=== PATIENT | female | born 1940 | race Caucasian/White ===

== ENCOUNTER 2024-08-21 09:07 | Outpatient (REF) | payer MEDICARE, SELFPAY ==
[2024-08-21 09:18] LABS: Appearance Urine Cloudy (Clear); Bilirubin Urine Negative (Negative); Blood Urine 1+ (Negative); Color Urine Yellow (Yellow); Glucose Urine Negative (Negative); Ketones Urine Negative (Negative); Leukocyte Esterase Urine 3+ (Negative); Nitrite Urine Negative (Negative); Protein Urine 1+ (Negative); Specific Gravity Urine 1.015 (1.000-1.030); Urobilinogen Urine 0.2 (0.2-1.0)
[2024-08-21 09:36] LABS: Bacteria Urine Moderate; Squamous Epithelial Cell Urine Few (None-Few); WBC Urine 25-50 (0-5)
== END 2024-08-21 09:08 | disposition home or self-care (01) ==
LOC: NPINS 09:07
PROVIDERS: Visit Provider Nurse Practitioner Gerontology
DX: R58 Hemorrhage, not elsewhere classified (principal); R41.0 Disorientation, unspecified; R35.0 Frequency of micturition
CPT/HCPCS: 81001; 87086

== ENCOUNTER 2024-08-26 08:54 | Outpatient (REF) | payer MEDICARE, SELFPAY ==
[2024-08-26 09:05] LABS: Basophils Absolute Auto 0.03 K/uL (0.00-0.30); Basophils Percent Auto 0.5 % (0.0-3.0); Eosinophils Absolute Auto 0.16 K/uL (0.00-0.50); Eosinophils Percent Auto 2.5 % (0.0-7.0); Hematocrit 32.4 % (33.0-51.0); Hemoglobin* 9.7 gm/dL (12.0-16.0); Immature Granulocytes Abs Auto 0.01 K/uL (0.00-0.30); Immature Granulocytes Pct Auto 0.2 %; Lymphocytes Absolute Auto 1.97 K/uL (0.90-2.90); Lymphocytes Percent Auto 31.3 % (20-44); Mean Corpuscular HGB Conc 30 gm/dL (32-36); Mean Corpuscular Hemoglobin 30 pg (26-34); Mean Corpuscular Volume 101 fL (80-100); Neutrophils Absolute Auto 3.49 K/uL (1.7-7.0); Neutrophils Percent Auto 55.5 % (42.0-72.0); Platelet Count* 114 K/uL (140-440); RDW Coefficient of Variation % 14.1 % (11.5-15.5); Red Blood Count 3.22 m/uL (4.00-5.20); White Blood Count* 6.29 K/uL (4.50-11.00)
[2024-08-26 09:22] LABS: Slide Review Reflex No
[2024-08-26 09:24] LABS: Chloride* 112 mmol/L (96-114); Potassium* 4.6 mmol/L (3.6-5.1); Sodium* 141 mmol/L (135-149)
[2024-08-26 09:26] LABS: Cholesterol* 149 mg/dL (90-199)
[2024-08-26 09:27] LABS: Anion Gap 6 mEq/L (7-15); Blood Urea Nitrogen* 41 mg/dL (7-30); Carbon Dioxide* 23 mmol/L (20-32); Estimated Glomerular Filt Rate 56 ml/min; Glucose* 137 mg/dL (60-115); Triglycerides* 56 mg/dL (40-149)
[2024-08-26 09:28] LABS: Calcium* 8.9 mg/dL (8.4-10.6); HDL Cholesterol* 67 mg/dL (>=50); LDL Cholesterol Calculated 71 mg/dL (<100)
[2024-08-26 09:41] LABS: Hemoglobin A1C* 6.3 % (0-5.6)
== END 2024-08-26 08:55 | disposition home or self-care (01) ==
LOC: NPINS 08:54
PROVIDERS: Visit Provider Nurse Practitioner Gerontology
DX: E11.9 Type 2 diabetes mellitus without complications (principal); I10 Essential (primary) hypertension; E78.5 Hyperlipidemia, unspecified
CPT/HCPCS: 80048; 80061; 83036; 85025

== ENCOUNTER 2024-10-01 14:39 | Outpatient (CLI) | payer MEDICARE, BC, SELFPAY | END 2024-10-01 14:40 | disposition home or self-care (01) | LOC: NFLDREF 14:39 | PROVIDERS: Visit Provider Obstetrics & Gynecology | DX: R33.9 Retention of urine, unspecified (principal) | CPT/HCPCS: 87086 ==

== ENCOUNTER 2024-11-04 12:25 | Outpatient (REF) | payer MEDICARE, BC, SELFPAY ==
[2024-11-04 12:50] LABS: Basophils Absolute Auto 0.02 K/uL (0.00-0.30); Basophils Percent Auto 0.3 % (0.0-3.0); Eosinophils Absolute Auto 0.31 K/uL (0.00-0.50); Eosinophils Percent Auto 4.2 % (0.0-7.0); Hematocrit 30.5 % (33.0-51.0); Hemoglobin* 9.3 gm/dL (12.0-16.0); Immature Granulocytes Abs Auto 0.02 K/uL (0.00-0.30); Immature Granulocytes Pct Auto 0.3 %; Lymphocytes Percent Auto 13.6 % (20-44); Mean Corpuscular HGB Conc 31 gm/dL (32-36); Mean Corpuscular Hemoglobin 29 pg (26-34); Mean Corpuscular Volume 95 fL (80-100); Monocytes Percent Auto 9.9 % (0.0-11.0); Neutrophils Absolute Auto 5.28 K/uL (1.7-7.0); Neutrophils Percent Auto 71.7 % (42.0-72.0); Platelet Count* 167 K/uL (140-440); RDW Coefficient of Variation % 13.9 % (11.5-15.5); Red Blood Count 3.22 m/uL (4.00-5.20); White Blood Count* 7.36 K/uL (4.50-11.00)
[2024-11-04 12:51] LABS: Slide Review Reflex No
[2024-11-04 13:06] LABS: Chloride* 100 mmol/L (96-114); Potassium* 4.4 mmol/L (3.6-5.1); Sodium* 138 mmol/L (135-149)
[2024-11-04 13:09] LABS: Anion Gap 9 mEq/L (7-15); Blood Urea Nitrogen* 44 mg/dL (7-30); Calcium* 8.8 mg/dL (8.4-10.6); Carbon Dioxide* 29 mmol/L (20-32); Creatinine* 1.4 mg/dL (0.5-1.5); Estimated Glomerular Filt Rate 38 ml/min; Glucose* 245 mg/dL (60-115)
[2024-11-04 13:58] LABS: Vitamin B12* 658 pg/mL (243-894)
[2024-11-05 16:53] LABS: Folate, Serum 12.3 ng/mL (>=5.9)
== END 2024-11-04 12:26 | disposition home or self-care (01) ==
LOC: NPINS 12:25
PROVIDERS: Visit Provider Family Medicine
DX: D64.9 Anemia, unspecified (principal); R60.9 Edema, unspecified
CPT/HCPCS: 80048; 82607; 82746; 85025

== ENCOUNTER 2024-12-16 12:03 | Outpatient (REF) | payer MEDICARE, BC, SELFPAY ==
[2024-12-16 13:29] LABS: Hemoglobin A1C* 8.2 % (0-5.6)
== END 2024-12-16 12:04 | disposition home or self-care (01) ==
LOC: NPINS 12:03
PROVIDERS: Visit Provider Nurse Practitioner Gerontology
DX: E11.9 Type 2 diabetes mellitus without complications (principal)
CPT/HCPCS: 83036

== ENCOUNTER 2025-03-30 10:00 | Outpatient (REF) | payer MEDICARE, BC, SELFPAY ==
[2025-03-30 10:29] LABS: Chloride* 111 mmol/L (96-114); Potassium* 4.2 mmol/L (3.6-5.1); Sodium* 140 mmol/L (135-149)
[2025-03-30 10:32] LABS: Anion Gap 6 mEq/L (7-15); Blood Urea Nitrogen* 41 mg/dL (7-30); Calcium* 9.2 mg/dL (8.4-10.6); Carbon Dioxide* 23 mmol/L (20-32); Creatinine* 1.3 mg/dL (0.5-1.5); Estimated Glomerular Filt Rate 41 ml/min; Glucose* 117 mg/dL (60-115)
--- OUTSIDE RECORDS SUMMARY | 2025-03-31 00:15 | XMS_ITS | Patient Health Record ---
Author Organization [facility] [address] Address [address] [place] [address] Support Name Relationship Address Phone Unavailable Emergency Contact Unknown Nichol Cardenas Guarantor Unknown [phone] Reason For Referral No Information Medications Medication SIG (Take, Route, Frequency, Duration) Notes Start Date End Date Status Simvastatin 40 mg tablet 1 by mouth in t he evening 06/26/2012 Active metformin 500 mg tablet 1 by mouth in th e morning 07/08/2012 Active Omeprazole 20 mg capsule,delayed release(DR/EC) 1 by mouth twice daily 06/26/2012 Act isabella Lisinopril 5 mg tablet 1 by mouth daily 06/26/2012 Active Nitroglycerin 0.4 mg tablet, sublingual as needed 06/26/2012 Active B Complex tablet extended release 1 by mouth daily 06/26/2012 Active Fioricet 50-325-40 mg tablet take 1 tablet as needed for tension headache every 6hrs as needed for pain/ headache, stop date by 06/30/12 06/26/2012 Active Naproxen 500 mg tablet take twice a day as needed 06/26/2012 Active Ketoconazole 2 % Cream application to af fected area as needed twice a day 06/26/2012 Active Aspir-Low 81 mg tablet,delayed release (DR/EC) 1 by mouth daily 06/26/2012 Active Coenzyme Q10 200 mg capsule take 1 capsule with a meal once a day 06/26/2012 Active oxyBUTYnin Chloride 15 mg tablet extended release 24hr Take as Directed 06/26/2012 Active Problems Problem Type SNOMED Code ICD Code Onset Dates Problem Status W/U Status Risk Notes Problem Aortic valve disorder (6851494) Aortic valve disorders (424.1) 07/25/20 12 Active confirmed [id number] Problem Hyperlipidemia (10174903) Hyperlipidemia (272.4) 07/25/20 12 Active confirmed [id number]- Problem Benign essential hypertension (5140280) Hypertension-Esse ntial (Benign) (401.1) 06/26/20 12 Active confirmed [id number]- Problem Coronary artery disease (70140112) CAD (414.00) 07/25/20 12 Active confirmed [id number]- Problem Type I diabetes mellitus without complication (814963680) Diabetes Mellitus-IDD (250.01) 07/25/20 12 Active confirmed [id number]- Problem Heart murmur (348620843) Murmur-Undiagnose d (785.2) 07/25/20 12 Active confirmed [id number]- Problem Heart sounds abnormal (581480466) Abnormal Hrt Sounds,Oth (785.3) 07/25/20 12 Active confirmed [id number]- Problem Influenza immunization (18005349) Need For Prophylactic Vaccination And Inoculation Against Influenza (V04.81) 07/25/20 12 Active confirmed [id number]- Problem Screening for malignant neoplasm of breast (715555012) Breast Screening Unspecified (V76.10) 07/25/20 12 Active confirmed [id number]- Problem Screening for malignant neoplasm of colon (967054345) Special Screening For Malignant Neoplasms Of Colon (V76.51) 07/25/20 12 Active confirmed [id number]- Problem Abnormal Wt loss (783.2) 06/26/20 12 Active confirmed [id number]- Plan Of Treatment No Information Insurance Providers Payer Name Payer Address Payer Phone Subscriber Number Group Number Insured Name Patient Relationship to Insured Coverage Start Date Coverage End Date [employer] [address] [place] [address] [phone] [id number] Nichol Cardenas Self - patient is the insured
--- OUTSIDE RECORDS SUMMARY | 2025-03-31 00:16 | XMS_ITS | Patient Health Record ---
Author Organization [facility] Address [address] [place], [place] [id number] Care Team Providers Care Final Assembly Worker Name Role Phone Erin Don MD Primary Care Provider Jefe Zelaya Unavailable [phone] Reason For Referral No Information Medications Medication SIG (Take, Route, Frequency, Duration) Notes Start Date End Date Status Omeprazole Active Voltaren Active Alendronate Sodium A ctive Primidone Active Detrol Active Bland Calcium +D Ac tive metFORMIN HCl Active Nitrostat Active Lisinopril Active Aspir-81 Active FORA V30a Blood Glucose System Active Stool Softener Activ e Atorvastatin Calcium Active Spiriva HandiHaler A ctive Ventolin HFA Active Social History Tobacco Use: Social History Observation Description Date Details (start date - stop date) Current Smoker NA - NA Tobacco Use/Smoking Question Answer Notes Are you a current smoker How often do you smoke cigarettes? every day How many cigarettes a day do you smoke? 11-20 Alcohol Screen Question Answer Notes Did you have a drink containing alcohol in the p ast year? No Points 0 Tobacco use other than smoking: Question Answer Notes Are you an other tobacco user? No Section Notes: patient smokes 1 pack per da y for the past 50+ yrs. Problems Problem Type SNOMED Code ICD Code Onset Dates Problem Status W/U Status Risk Notes Problem Localized, primary osteoarthritis of the hand (229134822) Primary localized osteoarthrosis, hand (715.14) Active confirmed Problem Hand pain (89132987) Hand pain (719.44) Active confirmed Problem Contracture of palmar fascia (839546473) Contracture of palmar fascia (728.6) Active confirmed Problem Disturbance of skin sensation (497418274) Disturbance of skin sensation (782.0) Active confirmed Plan Of Treatment No Information Insurance Providers Payer Name Payer Address Payer Phone Subscriber Number Group Number Insured Name Patient Relationship to Insured Coverage Start Date Coverage End Date [employer] [address] [place] [address] [phone] [id number] Nichol Cardenas Self - patient is the insured Medical (General) History Medical History History ICD Code GERD Diabetes Osteoarthritis Urinary problem COPD Surgical History Surgery Date(Month/Year) Heart catheterization 1996 Bilateral hands surgery 1996 Appendectomy 1964 section 1971 & 1977 Tubal ligation 1977 Hospitalization History Reason Date(Month/Year) Heart catheterization 1996
--- OUTSIDE RECORDS SUMMARY | 2025-03-31 00:16 | XMS_ITS | Patient Health Record ---
Author Organization [facility] Address [address] [address] Care Team Providers Care Warehouse Worker Name Role Phone Philippe, Cale Primary Care Provider Unavailabl e Allergies No Known Allergies Reason For Referral No Information Medications Medication SIG (Take, Route, Frequency, Duration) Notes Start Date End Date Status Docusate Sodium 100 MG 1 capsule as needed Orally Once a day for 30 day(s) Not-Taking Multi For Her 50+ - as directed Orally Not-Taking Meloxicam 7.5 MG 1 tablet Orally Once a day for 30 day(s) Active Carvedilol 3.125 MG 1 tablet with food Orally Twice a day for 30 day(s) Active Aspir-81 *Reorder from [place] for eRx and Interaction Alerts* Active metFORMIN HCl 500 MG 1 tablet with a meal Orally Once a day for 30 day(s) Active Alendronate Sodium 70 MG 1 tablet 30 minutes before the first food, beverage or medicine of the day with plain water Orally for 30 day(s) Active Tylenol 8 Hour Arthritis Pain 650 MG 2 tablets as needed Orally every 8 hrs Active Spiriva HandiHaler 18 MCG 1 capsule by inhaling the contents of the capsule using the HandiHaler device Inhalation Once a day Active Atorvastatin Calcium 80 MG 1 tablet Orally Once a day for 30 day(s) Active Omeprazole 20 MG 1 capsule 30 minutes before morning meal Orally Once a day for 30 day(s) Active Plan Of Treatment No Information Insurance Providers Payer Name Payer Address Payer Phone Subscriber Number Group Number Insured Name Patient Relationship to Insured Coverage Start Date Coverage End Date [facility] [address] [place] [address] [id number] Nichol Cardenas Self - patient is the insured 4 4 Medical (General) History Medical History History ICD Code Hyperlipidemia CKD Surgical History Surgery Date(Month/Year) Appendectomy tubal ligation B/L hand sx heart cath cell biopsy Hospitalization History Reason Date(Month/Year) see above
--- OUTSIDE RECORDS SUMMARY | 2025-03-31 00:16 | XMS_ITS | Patient Health Record ---
Author Organization [facility] Address [address] [facility] [address] [place] [address] Care Team Providers Care Correctional Sergeant Name Role Phone Denae RAMÍREZ, Cale Primary Care Provider Kailyn De Guzman Unavailable [phone] Allergies No Known Allergies Reason For Referral No Information Medications Medication SIG (Take, Route, Frequency, Duration) Notes Start Date End Date Status Aspirin 81 MG 1 tab(s) orally once a day Active Ketoconazole 2 % applied topically Active Nitroglycerin 0.4 MG as directed Subling ual Once a day Active Selenium Sulfide 2.5 % as directed Active Triamcinolone Acetonide 0.1 % 1 yun applied topically 2 times a day for 14 days 04/15/2021 Not-Taking Ventolin HFA 108 (90 Base) MCG/ACT 2 puff(s) inhaled 4 times a day PRN x SOB for 30 days Active Nitrostat 0.4 MG 1 tab(s) sublinguall y every 5 minutes prn chest pain, max 3 for 90 days Active Meloxicam 7.5 MG take 1 tablet by kiersten th every day as needed orally once a day for 90 days Active Carvedilol 3.125 MG TAKE 1 TABLET BY KIERSTEN TH TWICE A DAY WITH FOOD FOR 90 DAYS for 90 Active One-A-Day Womens 50+ - as directed Orally Active Omeprazole 20 MG TAKE 1 CAPSULE BY MO UTH EVERY DAY for 90 Active Primidone 50 MG take 1 tablet by kiersten th in the morning and 2 tablets in the evening daily orally as directed for 90 days Active metFORMIN HCl 500 MG TAKE 1 TABLET BY MO UTH TWICE A DAY orally 2 times a day for 90 days Active Primidone 50 MG 1 Tablet Oral 2 90 day(s) Oral 07/02/2014 Active Tylenol PM Extra Strength 500-25 MG 1 tablet at bedtime as needed Orally Once a day Active Skyline-Ganipa-Smoothe/FS Scalp 0.01 % 1 yun applied topically 3 times a day Not-Taking Fioricet 50-300-40 MG Take 1 capsule by mouth every 4 hours as needed for headache Oral 07/02/2014 Active CoQ-10 50 MG as directed Orally Not-Taking Albuterol Sulfate HFA 108 (90 Base) MCG/ACT INHALE 1 PUFF INTO THE LUNGS EVERY 4 HOURS NEEDED Inhalation every 4 hrs for 30 days Active Docusate Sodium 100 MG 1 capsule as need ed Orally Once a day Active Alendronate Sodium 70 MG TAKE 1 TABLET B Y MOUTH ONCE A WEEK Orally once a week for 84 days Active Lisinopril 5 MG TAKE 1 TABLET BY KIERSTEN TH EVERY DAY for 90 Active Memantine HCl 10 MG 1 tablet Orally twic e a day for 90 days Active Bacitracin 500 UNIT/GM 1 application Externally Once a day Active Melatonin 5 MG 1 tab(s) orally once a day (at bedtime) prn insomnia 02/18/2019 Active Atorvastatin Calcium 80 MG TAKE 1 TABLET BY MOUTH EVERYDAY AT BEDTIME for 90 Active Immunizations Vaccine Route Administration Date Status Comme nts Covid-19- Pfizer Unknown 12/09/2020 Administered Covid-19- Pfizer Unknown 12/29/2020 Administered Influenza Non-Medicare IM Intramuscular 07/10/2019 Administered Influenza quadrivalent, preservative free IM Intramuscular 07/06/2021 Administered Influenza vaccine IM Intramuscular 05/31/2020 Administered Influenza virus vaccine, not otherwise specified IM Intramuscular 06/24/2018 Administered Patient tolerated well Influenza, high-dose, quadrivalent Unknown 07/24/2022 Administered Td -Adult Absorbed, (Tetanus & Diphteria Toxoids) Unknown 04/02/2018 Administered patient tolerated well Social History Tobacco Use: Social History Observation Description Date Details (start date - stop date) Current Smoker NA - NA Tobacco Use: Question Answer Notes Additional Findings: Tobacco User Moderate cigar ette smoker (10-19 cigs/day) Smoking Status Current smoker Problems Problem Type SNOMED Code ICD Code Onset Dates Problem Status W/U Status Risk Notes Problem Thrombocytopenia (566181264) Thrombocytopeni a, unspecified (D69.6) Active confirmed low 129 Problem Type 2 diabetes mellitus with peripheral angiopathy (828114648) Type 2 diabetes mellitus with diabetic peripheral angiopathy without gangrene (E11.51) Active confirmed Problem Hyperlipidemia (97499708) Hyperlipidemia, unspecified (E78.5) Active confirmed Problem Tobacco user (675244269) Nicotine dependence, cigarettes, uncomplicated (F17.210) Active confirmed Problem Essential tremor (866207314) Essential tremor (G25.0) Active confirmed Problem 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, with stage 1 through stage 4 chronic kidney disease, or unspecified chronic kidney disease (I13.10) Active confirmed Problem Angina (287476596) Atherosclerot ic heart disease of [place] coronary artery with unspecified angina pectoris (I25.119) Active confirmed Problem Hypertrophic cardiomyopathy (340042740) Other hypertrophic cardiomyopathy (I42.2) Active confirmed Echocardiogram June 28, 20202017 moderate concentric left ventricular hypertrophy Problem Atherosclerosis of aorta (51711372) Atherosclerosis of aorta (I70.0) Active confirmed seen on cxr 2013 Problem Atherosclerosis of [place] arteries of the extremities (866368112571523) Unspecified atherosclerosis of [place] arteries of extremities, bilateral legs (I70.203) Active confirmed Lead 05/27/21 mild bl le arteries less than 50 percent. Problem Chronic obstructive pulmonary disease (17092739) Chronic obstructive pulmonary disease, unspecified (J44.9) Active confirmed Pulmonary function test February 08, 2018 interpretation minimal obstructive lung defect with significant response to bronchodilator. 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 [address] [place] [address] 05/28/2024 Cale Philippe [facility] [address] [place] [address] 06/02/2024 Cale Philippe [facility] [address] [facility] [place] [address] 06/06/[address] [facility] [address] [facility] [address] [place] [address] 06/12/2024 Cale Philippe [facility] [address] [place] [address] 06/20/2024 Kailyn De Guzman [facility] [place] [address] [place] [address] 06/20/2024 Kailyn De Guzman Encounter for genera l adult medical examination with abnormal findings Z00.01 [facility] [place] [address] [place] [address] 07/10/2024 Cale Philippe [facility] [address] [place] [address] 07/18/2024 Cale Philippe Encounter for genera l adult medical examination with abnormal findings Z00.01 [facility] [address] [facility] [address] [place] [address] 09/26/2024 Cale Philippe Assessments Encounter Date Diagnosis (ICD Code) Assessment Notes Treatment Notes Treatment Clinical Notes Section Notes 06/20/2024 Encounter for general adult medical examination with abnormal findings (ICD-10 - Z00.01) 07/18/2024 Encounter for general adult medical examination with abnormal findings (ICD-10 - Z00.01) Plan Of Treatment Pending Test Test Name Order Date Echocardiogram, 2D, without Doppler 06/10 Echocardiogram, 2D, without Doppler 04/2021 DEXA Axial Skeleton, Hips and Spine, Bon e Density. 03/15/2018 DEXA Axial Skeleton, Hips and Spine, Bon e Density. 11/22/2016 XRay Chest, 2 views: AP and Lat 02/09/20 Urine Culture, Routine 395 01/28/2018 Lipid Panel [id number] 09/30/2020 Lipid Panel [id number] 09/24/2018 Lipid Panel 412392 07/10/2019 Lipid Panel [id number] 12/26/2017 Lipid Panel [id number] 09/27/2017 Lipid Panel [id number] 03/15/2018 Lipid Panel [id number] 05/31/2020 Ferritin 11/24/2021 Microalbumin:Creatinine Ratio, Random Ur ine 6517 09/30/2020 Microalbumin:Creatinine Ratio, Random Ur ine 6517 10/24/2021 Urinalysis,Routine (URINE DIP) 2 Hemoglobin A1c e11.9 07/10/2019 Hemoglobin A1c e11.9 09/24/2018 Hemoglobin A1c e11.9 03/15/2018 Hemoglobin A1c e11.9 09/27/2017 Hemoglobin A1c e11.9 12/26/2017 Hemoglobin A1c e11.9 06/28/2017 TSH 09/24/2018 TSH 07/10/2019 Microalbumin, Random Urine with Creatini ne 12/26/2017 Microalbumin, Random Urine with Creatini ne 03/15/2018 Vitamin B12 (Cobalamin) and Folate Panel , Serum 7065 09/24/2018 Vitamin B12 (Cobalamin) and Folate Panel , Serum 7065 11/24/2021 Vitamin B12 (Cobalamin) and Folate Panel , Serum 7065 07/10/2019 Vitamin B12 (Cobalamin) and Folate Panel , Serum 7065 05/31/2020 Urinalysis with Reflex to Microscopic (Q ) 06/28/2017 Microalbumin, Random Urine (without Crea tinine) 45326 07/10/2019 Comprehensive Metabolic Panel w/ EGFR (C MP) 48031 07/10/2019 Comprehensive Metabolic Panel w/ EGFR (C MP) 05486 09/24/2018 Comprehensive Metabolic Panel w/ EGFR (C MP) 70160 09/30/2020 Comprehensive Metabolic Panel w/ EGFR (C MP) 40459 12/24/2018 Comprehensive Metabolic Panel w/ EGFR (C MP) 79805 11/24/2021 Comprehensive Metabolic Panel w/ EGFR (C MP) 23716 06/28/2017 Comprehensive Metabolic Panel w/ EGFR (C MP) 11475 12/26/2017 Comprehensive Metabolic Panel w/ EGFR (C MP) 06180 09/27/2017 Comprehensive Metabolic Panel w/ EGFR (C MP) 50529 03/15/2018 Comprehensive Metabolic Panel w/ EGFR (C MP) 52167 06/24/2018 Comprehensive Metabolic Panel w/ EGFR (C MP) 17451 05/31/2020 Comprehensive Metabolic Panel w/ EGFR (C MP) 69819 03/04/2020 Comprehensive Metabolic Panel w/ EGFR (C MP) 60327 01/31/2017 CBC (H/H, RBC, Indices, WBC, PLT) 1759 0 03/04/2020 CBC (H/H, RBC, Indices, WBC, PLT) 1759 1 CBC (H/H, RBC, Indices, WBC, PLT) 1759 0 09/24/2018 CBC (H/H, RBC, Indices, WBC, PLT) 1759 0 09/27/2017 CBC (H/H, RBC, Indices, WBC, PLT) 1759 0 12/24/2018 Urinalysis, Complete, with Reflex to Cul ture (Q) 3020 02/12/2017 Pulmonary Function Test 09/27/2017 Pulmonary Function Test 12/26/2017 Fecal Globin by Immunochemistry (InSure) (FOBT), Medicare Screen 11/22/2016 XRay Foot, 3 views: AP, Oblique and Lat. Left 01/03/2019 CBC (INCLUDES DIFF/PLT) 03/15/2018 CBC (INCLUDES DIFF/PLT) 06/28/2017 CBC (INCLUDES DIFF/PLT) 12/26/2017 CBC (INCLUDES DIFF/PLT) 07/10/2019 Lipid Panel with Direct LDL (Q) 06/28/20 17 Hemoglobin (Hb) A1c With eAG [id number] 05/12 Mammogram Bilateral screening 11/22/2016 Mammogram Bilateral screening 03/15/2018 Hemoglobin A1c 496 02/19/2019 Hemoglobin A1c 496 10/24/2021 Hemoglobin A1c 496 09/30/2020 XRay Ankle, 2 views: AP and Lat Oblique. Left 01/03/2019 US Carotids Duplex, Bilateral 06/24/2018 US Arterial Duplex, Lower Extremities. B ilateral 02/15/2021 US Arterial Duplex, Lower Extremities. B ilateral 06/24/2018 Complete Blood Count (CBC) With Differen tial 6399 11/24/2021 Complete Blood Count (CBC) With Differen tial 6399 05/31/2020 Complete Blood Count (CBC) With Differen tial 6399 09/30/2020 TSH w/Reflex 05/31/2020 TSH w/Reflex 11/24/2021 DEXA HIP AND SPINE 07/06/2021 CHAYITO w/Reflex 11/24/2021 Future Test Test Name Order Date Lipid Panel [id number] 09/10/2021 Vitamin B12 552323 09/10/2021 CBC (INCLUDES DIFF/PLT) 09/10/2021 Hemoglobin A1c 496 09/10/2021 CMP [id number] 09/10/2021 TSH reflex to T4 09/10/2021 Vitamin D, 25-Hydroxy, Total 252151 09/2021 CMP14+eGFR 596079 03/14/2023 CBC (INCLUDES DIFF/PLT) 03/14/2023 Lipid Panel with LDL/HDL Ratio 3 Insurance Providers Payer Name Payer Address Payer Phone Subscriber Number Group Number Insured Name Patient Relationship to Insured Coverage Start Date Coverage End Date [employer] CAP [address] [place] [address] [id number] Nichol Cardenas Self - patient is the insured 9 [facility] Medicare Advantage CAP [address] [place] [address] [id number] Nichol Cardenas Self - patient is the insured [employer] [facility] [address] [place] [address] [id number] Nichol Cardenas Self - patient is the insured Medications Administered Medication Instructions Date of Administration Dosage Notes COA Form 08/05/2014 COA Form 08/19/2014 COA Form 10/15/2014 COA Form 11/25/2014 COA Form 01/20/2015 COA Form 01/22/2015 COA Form 06/30/2015 COA Form 10/06/2015 Medical (General) History Medical History History ICD Code diabetes type 2 bladder incontinence Hyperlipidemia NOS Old myocardial infarction GERD [Gastroesophageal reflux disease] Tobacco use disorder Atherosclerosis of aorta COPD, NOS Diverticular disease of colon Familial tremor CKD III Occlusion of carotid artery without ment ion of cerebral infarction Chronic cerebral ischemia Carpal tunnel syndrome Old myocardial infarction Diverticulosis of large inte chelo without perforation or abscess without bleeding Other intervertebral disc degeneration, lumbar region squamous cell carcinoma Surgical History Surgery Date(Month/Year) appendectomy 1964 c-sectionn x 2 tubaligation 1977 hand surgery both hands heart catherization 1996 squamous cell biopsy 2012 Hospitalization History Reason Date(Month/Year) see above
--- OUTSIDE RECORDS SUMMARY | 2025-03-31 00:16 | XMS_ITS | Patient Health Record ---
Author Organization [facility] Address [address] [place] [address] Care Team Providers Care Global Transportation Manager Name Role Phone Denae RAMÍREZ, Cale Primary Care Provider Brandon Powell [phone] Allergies No Known Allergies Reason For Referral No Information Medications Medication SIG (Take, Route, Frequency, Duration) Notes Start Date End Date Status metFORMIN HCl 500 MG 1 tablet with a hilda l Orally Once a day; Duration: 30 day(s) Active Aspir-81 Active Tylenol 8 Hour Arthritis Pain 650 MG 2 tablets as needed Orally every 8 hrs Active Alendronate Sodium 70 MG 1 tablet 30 min utes before the first food, beverage or medicine of the day with plain water Orally; Duration: 30 day(s) Active Multi For Her 50+ - as directed Orally Not-Taking Docusate Sodium 100 MG 1 capsule as need ed Orally Once a day; Duration: 30 day(s) Not-Taking Carvedilol 3.125 MG 1 tablet with food Orally Twice a day; Duration: 30 day(s) Active Meloxicam 7.5 MG 1 tablet Orally Once a day; Duration: 30 day(s) Active Omeprazole 20 MG 1 capsule 30 minutes before morning meal Orally Once a day; Duration: 30 day(s) Active Atorvastatin Calcium 80 MG 1 tablet Orally Once a day; Duration: 30 day(s) Active Spiriva HandiHaler 18 MCG 1 capsule by i nhaling the contents of the capsule using the HandiHaler device Inhalation Once a day Active Social History Tobacco Use: Social History Observation Description Date Details (start date - stop date) Current Smoker NA - NA Tobacco Use/Smoking Question Answer Notes Are you a current smoker How often do you smoke cigarettes? every day How many cigarettes a day do you smoke? 11-20 How soon after you wake up do you smoke your fir st cigarette? 6-30 minutes Are you interested in quitting? Not ready to david t Alcohol Screen (Audit-C) Question Answer Notes Did you have a drink containing alcohol in the p ast year? No Points 0 Interpretation Negative Plan Of Treatment No Information Insurance Providers Payer Name Payer Address Payer Phone Subscriber Number Group Number Insured Name Patient Relationship to Insured Coverage Start Date Coverage End Date [facility] [address] [place] [address] [id number] Nichol Cardenas Self - patient is the insured 2 MEDICARE [address] [place] [phone] [id number] Nichol Cardenas Self - patient is the insured Medical (General) History Medical History History ICD Code Hyperlipidemia CKD Surgical History Surgery Date(Month/Year) Appendectomy tubal ligation B/L hand sx heart cath cell biopsy Hospitalization History Reason Date(Month/Year) see above
== END 2025-03-30 10:01 | disposition home or self-care (01) ==
LOC: NPINS 10:00
PROVIDERS: Referring Provider Nurse Practitioner Gerontology; Visit Provider Nurse Practitioner Gerontology
DX: E11.51 Type 2 diabetes mellitus with diabetic peripheral angiopathy without gangrene (principal)
CPT/HCPCS: 80048; 83036

== ENCOUNTER 2025-04-23 16:10 | Outpatient (REF) | payer BC, SELFPAY ==
[2025-04-23 23:03] LABS: Hematocrit* 34.6 % (33.0-51.0); Hemoglobin* 10.6 gm/dL (12.0-16.0); Immature Granulocytes Abs Auto 0.03 K/uL (0.00-0.30); Immature Granulocytes Pct Auto 0.5 %; Lymphocytes Absolute Auto 1.58 K/uL (0.90-2.90); Mean Corpuscular HGB Conc 31 gm/dL (32-36); Mean Corpuscular Hemoglobin 29 pg (26-34); Mean Corpuscular Volume 93 fL (80-100); RDW Coefficient of Variation % 16.5 % (11.5-15.5); Red Blood Count* 3.72 m/uL (4.00-5.20); White Blood Count* 5.70 K/uL (4.50-11.00)
[2025-04-23 23:09] LABS: Slide Review Reflex No
--- OUTSIDE RECORDS SUMMARY | 2025-04-24 00:14 | XMS_ITS | Patient Health Record ---
Author Organization [facility] Address [address] [address] Care Team Providers Care Sap Business Objects Consultant Name Role Phone Denae Cale Primary Care Provider Unavailabl e Allergies No Known Allergies Reason For Referral No Information Medications Medication SIG (Take, Route, Frequency, Duration) Notes Start Date End Date Status Docusate Sodium 100 MG 1 capsule as needed Orally Once a day; Duration: 30 day(s) Not-Taking Multi For Her 50+ - as directed Orally Not-Taking Meloxicam 7.5 MG 1 tablet Orally Once a day; Duration: 30 day(s) Active Carvedilol 3.125 MG 1 tablet with food Orally Twice a day; Duration: 30 day(s) Active Aspir-81 *Reorder from ThumbAd for eRx and Interaction Alerts* Active metFORMIN HCl 500 MG 1 tablet with a meal Orally Once a day; Duration: 30 day(s) Active Alendronate Sodium 70 MG 1 tablet 30 minutes before the first food, beverage or medicine of the day with plain water Orally; Duration: 30 day(s) Active Tylenol 8 Hour Arthritis [...] Once a day; Duration: 30 day(s) Active Plan Of Treatment No Information Insurance Providers Payer Name Payer Address Payer Phone Subscriber Number Group Number Insured Name Patient Relationship to Insured Coverage Start Date Coverage End Date [facility] [address] [place] [address] [id number] Nichol Cardenas Self - patient is the insured 4 4 Medical (General) History Medical History History ICD Code Hyperlipidemia CKD Surgical History Surgery Date(Month/Year) cell biopsy heart cath B/L hand sx tubal ligation Appendectomy Hospitalization History Reason Date(Month/Year) see above
--- OUTSIDE RECORDS SUMMARY | 2025-04-24 00:14 | XMS_ITS | Patient Health Record ---
Author Organization [facility] Address [address] [place], [place] [id number] Care Team Providers Care Embroiderer Name Role Phone Erin Don MD Primary Care Provider Jefe Zelaya Unavailable [phone] Reason For Referral No Information Medications Medication SIG (Take, Route, Frequency, Duration) Notes Start Date End Date Status Omeprazole Active Voltaren Active Alendronate Sodium A ctive Primidone Active Detrol Active [place] Calcium +D Ac tive metFORMIN HCl Active [...] Problem Localized, primary osteoarthritis of the hand (106384630) Primary localized osteoarthrosis, hand (715.14) Active confirmed Problem Hand pain (56851597) Hand pain (719.44) Active confirmed Problem Contracture of palmar fascia (993565172) Contracture of palmar fascia (728.6) Active confirmed Problem Disturbance of skin sensation (254362396) Disturbance of skin sensation (782.0) Active confirmed Plan Of Treatment No Information Insurance Providers Payer Name Payer Address Payer Phone Subscriber Number Group Number Insured Name Patient Relationship to Insured Coverage Start Date Coverage End Date [facility] [address] [place] [address] [id number] Nichol Cardenas Self - patient is the insured Medical (General) History Medical History History ICD Code GERD Diabetes Osteoarthritis Urinary problem COPD Surgical History Surgery Date(Month/Year) Heart catheterization 1996 Bilateral hands surgery 1996 Appendectomy 1964 section 1971 & 1977 Tubal ligation 1977 Hospitalization History Reason Date(Month/Year) Heart catheterization 1996
--- OUTSIDE RECORDS SUMMARY | 2025-04-24 00:14 | XMS_ITS | Patient Health Record ---
Author Organization [facility] Address [address] [facility] [place] [address] Support Name Relationship Address Phone Unavailable Emergency Contact Unknown Nichol Cardenas Guarantor Unknown [phone] Reason For Referral No Information Medications Medication [...] Status Risk Notes Problem Aortic valve disorder (5395110) Aortic valve disorders (424.1) 07/25/20 12 Active confirmed [id number] Problem Hyperlipidemia (65718835) Hyperlipidemia (272.4) 07/25/20 12 Active confirmed [id number]- Problem Benign essential hypertension (8688458) Hypertension-Esse ntial (Benign) (401.1) 06/26/20 12 Active confirmed [id number]- Problem Coronary artery disease (92786630) CAD (414.00) 07/25/20 12 Active confirmed [id number]- Problem Type I diabetes mellitus without complication (812309124) Diabetes Mellitus-IDD (250.01) 07/25/20 12 Active confirmed [id number]- Problem Heart murmur (177899510) Murmur-Undiagnose d (785.2) 07/25/20 12 Active confirmed [id number]- Problem Heart sounds abnormal (468905502) Abnormal Hrt Sounds,Oth (785.3) 07/25/20 12 Active confirmed [id number]- Problem Influenza immunization (16786668) Need For Prophylactic Vaccination And Inoculation Against Influenza (V04.81) 07/25/20 12 Active confirmed [id number]- Problem Screening for malignant neoplasm of breast (055787707) Breast Screening Unspecified (V76.10) 07/25/20 12 Active confirmed [id number]- Problem Screening for malignant neoplasm of colon (265899617) Special Screening For Malignant Neoplasms Of Colon (V76.51) 07/25/20 12 Active confirmed [id number]- Problem Abnormal Wt loss (783.2) 06/26/20 12 Active confirmed [id number]- Plan Of Treatment No Information Insurance Providers Payer Name Payer Address Payer Phone Subscriber Number Group Number Insured Name Patient Relationship to Insured Coverage Start Date Coverage End Date [facility] [address] [place] [address] [id number] Nichol Cardenas Self - patient is the insured
--- OUTSIDE RECORDS SUMMARY | 2025-04-24 00:14 | XMS_ITS | Patient Health Record ---
Author Organization [facility] Address [address] [facility] [address] [place] [address] Care Team Providers Care College Teacher Name Role Phone Denae RAMÍREZ, Cale Primary Care Provider Kailyn De Guzman Unavailable [phone] Allergies No Known Allergies Reason For Referral [...] 1 yun applied topically 2 times a day; Duration: 14 days 04/15/2021 Not-Taking Ventolin HFA 108 (90 Base) MCG/ACT 2 puff(s) inhaled 4 times a day PRN x SOB; Duration: 30 days Active Nitrostat 0.4 MG 1 tab(s) sublinguall y every 5 minutes prn chest pain, max 3; Duration: 90 days Active Meloxicam 7.5 MG take 1 tablet by kiersten th every day as needed orally once a day; Duration: 90 days Active Carvedilol 3.125 MG TAKE 1 TABLET BY KIERSTEN TH TWICE A DAY WITH FOOD FOR 90 DAYS; Duration: 90 Active One-A-Day Womens 50+ - as directed Orally Active Omeprazole 20 MG TAKE 1 CAPSULE BY MO UTH EVERY DAY; Duration: 90 Active Primidone 50 MG take 1 tablet by kiersten th in the morning and 2 tablets in the evening daily orally as directed; Duration: 90 days Active metFORMIN HCl 500 MG TAKE 1 TABLET BY MO UTH TWICE A DAY orally 2 times a day; Duration: 90 days Active Primidone 50 MG 1 Tablet Oral 2 90 day(s) Oral 07/02/2014 Active Tylenol PM Extra Strength 500-25 MG 1 tablet at bedtime as needed Orally Once a day Active Schubert-Smoothe/FS Scalp 0.01 % 1 yun applied topically 3 times a day Not-Taking Fioricet 50-300-40 MG Take 1 capsule by mouth every 4 hours as needed for headache Oral 07/02/2014 Active CoQ-10 50 MG as directed Orally Not-Taking Albuterol Sulfate HFA 108 (90 Base) MCG/ACT INHALE 1 PUFF INTO THE LUNGS EVERY 4 HOURS NEEDED Inhalation every 4 hrs; Duration: 30 days Active Docusate Sodium 100 MG 1 capsule as need ed Orally Once a day Active Alendronate Sodium 70 MG TAKE 1 TABLET B Y MOUTH ONCE A WEEK Orally once a week; Duration: 84 days Active Lisinopril 5 MG TAKE 1 TABLET BY KIERSTEN TH EVERY DAY; Duration: 90 Active Memantine HCl 10 MG 1 tablet Orally twic e a day; Duration: 90 days Active Bacitracin 500 UNIT/GM 1 application Externally Once a day Active Melatonin 5 MG 1 tab(s) orally once a day (at bedtime) prn insomnia 02/18/2019 Active Atorvastatin Calcium 80 MG TAKE 1 TABLET BY MOUTH EVERYDAY AT BEDTIME; Duration: 90 Active Immunizations Vaccine Route Administration Date [...] Status W/U Status Risk Notes Problem Thrombocytopenia (428109699) Thrombocytopeni a, unspecified (D69.6) Active confirmed low 129 Problem Type 2 diabetes mellitus with peripheral angiopathy (204784521) Type 2 diabetes mellitus with diabetic peripheral angiopathy without gangrene (E11.51) Active confirmed Problem Hyperlipidemia (90279678) Hyperlipidemia, unspecified (E78.5) Active confirmed Problem Tobacco user (227144902) Nicotine dependence, cigarettes, uncomplicated (F17.210) Active confirmed Problem Essential tremor (744723425) Essential tremor (G25.0) Active confirmed Problem 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, with stage 1 through stage 4 chronic kidney disease, or unspecified chronic kidney disease (I13.10) Active confirmed Problem Angina (957175757) Atherosclerot ic heart disease of council coronary artery with unspecified angina pectoris (I25.119) Active confirmed Problem Hypertrophic cardiomyopathy (571982869) Other hypertrophic cardiomyopathy (I42.2) Active confirmed Echocardiogram June 28, 20202017 moderate concentric left ventricular hypertrophy Problem Atherosclerosis of aorta (14216297) Atherosclerosis of aorta (I70.0) Active confirmed seen on cxr 2013 Problem Bilateral atherosclerosis of arteries of lower limbs (disorder) (31613259688027907 ) Unspecified atherosclerosis of council arteries of extremities, bilateral legs (I70.203) Active confirmed Lead 05/27/21 mild bl le arteries less than 50 percent. Problem Chronic obstructive pulmonary disease (68147111) Chronic obstructive pulmonary disease, unspecified (J44.9) Active confirmed Pulmonary function test February 08, 2018 interpretation minimal obstructive lung defect with significant response to bronchodilator. 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) Active confirmed Problem Able to mobilize using mobility aids (480028494) Able to mobilize using mobility aids (Z99.89) Active confirmed Encounters Encounter Location Date Provider Diagnosis [facility] [address] [address] [place] [address] 05/28/2024 Cale Minamas [facility] [address] [place] [address] 06/02/2024 Cale Philippe [facility] [address] [facility] [address] 06/06/2024 Cale Philippe [facility] [address] [facility] [address] [place] [address] 06/12/2024 Cale Philippe [facility] [address] [place] [address] 06/20/2024 Kailyn De Guzman [facility] [place] [address] [place] [address] 06/20/2024 Kailyn De Guzman Encounter for genera l adult medical examination with abnormal findings Z00.01 [facility] [address] [place] [address] 07/10/2024 Cale Minamas [facility] [address] [place] [address] 07/18/2024 Cale Philippe Encounter for genera l adult medical examination with abnormal findings Z00.01 [facility] [address] [facility] [address] [place] [address] 09/26/2024 Cale Denae Assessments Encounter Date Diagnosis (ICD Code) Assessment [...] Hips and Spine, Bon e Density. 11/22/2016 DEXA Axial Skeleton, Hips and Spine, Bon e Density. 03/15/2018 XRay Chest, 2 views: AP and Lat 02/09/20 Urine Culture, Routine 395 01/28/2018 Lipid Panel [id number] 12/26/2017 Lipid Panel [id number] 09/27/2017 Lipid Panel [id number] 03/15/2018 Lipid Panel 243540 09/30/2020 Lipid Panel 340046 05/31/2020 Lipid Panel [id number] 07/10/2019 Lipid Panel [id number] 09/24/2018 Ferritin 11/24/2021 Microalbumin:Creatinine Ratio, Random Ur ine 6517 10/24/2021 Microalbumin:Creatinine Ratio, Random Ur ine 6517 09/30/2020 Urinalysis,Routine (URINE DIP) Hemoglobin A1c e11.9 07/10/2019 Hemoglobin A1c e11.9 03/15/2018 Hemoglobin A1c e11.9 09/27/2017 Hemoglobin A1c e11.9 06/28/2017 Hemoglobin A1c e11.9 12/26/2017 Hemoglobin A1c e11.9 09/24/2018 TSH 09/24/2018 TSH 07/10/2019 Microalbumin, Random Urine with Creatini ne 03/15/2018 Microalbumin, Random Urine with Creatini ne 12/26/2017 Vitamin B12 (Cobalamin) and Folate Panel , Serum 7065 07/10/2019 Vitamin B12 (Cobalamin) and Folate Panel , Serum 7065 11/24/2021 Vitamin B12 (Cobalamin) and Folate Panel , Serum 7065 05/31/2020 Vitamin B12 (Cobalamin) and Folate Panel , Serum 7065 09/24/2018 Urinalysis with Reflex to Microscopic (Q ) 06/28/2017 Microalbumin, Random Urine (without Crea tinine) 60110 07/10/2019 Comprehensive Metabolic Panel w/ EGFR (C MP) 43707 07/10/2019 Comprehensive Metabolic Panel w/ EGFR (C MP) 13134 03/04/2020 Comprehensive Metabolic Panel w/ EGFR (C MP) 31354 05/31/2020 Comprehensive Metabolic Panel w/ EGFR (C MP) 41090 09/30/2020 Comprehensive Metabolic Panel w/ EGFR (C MP) 22980 11/24/2021 Comprehensive Metabolic Panel w/ EGFR (C MP) 51592 12/26/2017 Comprehensive Metabolic Panel w/ EGFR (C MP) 50617 06/28/2017 Comprehensive Metabolic Panel w/ EGFR (C MP) 24521 09/27/2017 Comprehensive Metabolic Panel w/ EGFR (C MP) 90925 03/15/2018 Comprehensive Metabolic Panel w/ EGFR (C MP) 19199 12/24/2018 Comprehensive Metabolic Panel w/ EGFR (C MP) 36541 06/24/2018 Comprehensive Metabolic Panel w/ EGFR (C MP) 43889 09/24/2018 Comprehensive Metabolic Panel w/ EGFR (C MP) 55897 01/31/2017 CBC (H/H, RBC, Indices, WBC, PLT) 1759 0 09/24/2018 CBC (H/H, RBC, Indices, WBC, PLT) 1759 1 CBC (H/H, RBC, Indices, WBC, PLT) 1759 0 12/24/2018 CBC (H/H, RBC, Indices, WBC, PLT) 1759 0 09/27/2017 CBC (H/H, RBC, Indices, WBC, PLT) 1759 0 03/04/2020 Urinalysis, Complete, with Reflex to Cul ture (Q) 3020 02/12/2017 Pulmonary Function Test 09/27/2017 Pulmonary Function Test 12/26/2017 Fecal Globin by Immunochemistry (InSure) (FOBT), Medicare Screen 11/22/2016 XRay Foot, 3 views: AP, Oblique and Lat. Left 01/03/2019 CBC (INCLUDES DIFF/PLT) 07/10/2019 CBC (INCLUDES DIFF/PLT) 03/15/2018 CBC (INCLUDES DIFF/PLT) 12/26/2017 CBC (INCLUDES DIFF/PLT) 06/28/2017 Lipid Panel with Direct LDL (Q) 06/28/20 17 Hemoglobin (Hb) A1c With eAG 700123 05/12 Mammogram Bilateral screening 03/15/2018 Mammogram Bilateral screening 11/22/2016 Hemoglobin A1c 496 02/19/2019 Hemoglobin A1c 496 09/30/2020 Hemoglobin A1c 496 10/24/2021 XRay Ankle, 2 views: AP and Lat Oblique. Left 01/03/2019 US Carotids Duplex, Bilateral 06/24/2018 US Arterial Duplex, Lower Extremities. B ilateral 06/24/2018 US Arterial Duplex, Lower Extremities. B ilateral 02/15/2021 Complete Blood Count (CBC) With Differen tial 6399 09/30/2020 Complete Blood Count (CBC) With Differen tial 6399 05/31/2020 Complete Blood Count (CBC) With Differen tial 6399 11/24/2021 TSH w/Reflex 11/24/2021 TSH w/Reflex 05/31/2020 DEXA HIP AND SPINE 07/06/2021 CHAYITO w/Reflex 11/24/2021 Future Test Test Name Order Date Lipid Panel [id number] 09/10/2021 Vitamin B12 [id number] 09/10/2021 CBC (INCLUDES DIFF/PLT) 09/10/2021 Hemoglobin A1c 496 09/10/2021 CMP [id number] 09/10/2021 TSH reflex to T4 09/10/2021 Vitamin D, 25-Hydroxy, Total 188874 09/2021 CMP14+eGFR 198667 03/14/2023 CBC (INCLUDES DIFF/PLT) 03/14/2023 Lipid Panel with LDL/HDL Ratio 3 Insurance Providers Payer Name Payer Address Payer Phone Subscriber Number Group Number Insured Name Patient Relationship to Insured Coverage Start Date Coverage End Date [employer] [address] [place] [address] [id number] Nichol Cardenas Self - patient is the insured 9 [facility] Medicare Advantage CAP [address] [place] [id number] Nichol Cardenas Self - patient is the insured [employer] [facility] [employer] [address] [place] [id number] Nichol Cardenas Self - patient is the [...] squamous cell carcinoma Surgical History Surgery Date(Month/Year) squamous cell biopsy 2012 heart catherization 1996 hand surgery both hands c-sectionn x 2 appendectomy 1963 tubaligation 1977 Hospitalization History Reason Date(Month/Year) see above
--- OUTSIDE RECORDS SUMMARY | 2025-04-24 00:14 | XMS_ITS | Patient Health Record ---
Author Organization [facility] Address [address] [place] [address] Care Team Providers Care Cake Wrapper Name Role Phone Denae RAMÍREZ, Cale Primary Care Provider Brandon Powell [phone] Allergies No Known Allergies Reason For Referral [...] Insured Coverage Start Date Coverage End Date [facility] [address] [place] [address] [id number] Nichol Cradenas Self - patient is the insured 2 MEDICARE [address] [place] [phone] [id number] Nichol Cardenas Self - patient is the insured Medical (General) History Medical History History ICD Code Hyperlipidemia CKD Surgical History Surgery Date(Month/Year) Appendectomy tubal ligation B/L hand sx heart cath cell biopsy Hospitalization History Reason Date(Month/Year) see above
== END 2025-04-23 16:11 | disposition home or self-care (01) ==
LOC: NPINS 16:10
PROVIDERS: PCP Family Medicine; Visit Provider Nurse Practitioner Gerontology
DX: D64.9 Anemia, unspecified (principal)
CPT/HCPCS: 85025

== ENCOUNTER 2025-05-12 13:30 | Outpatient (REF) | payer BC, SELFPAY ==
--- OUTSIDE RECORDS SUMMARY | 2025-04-27 09:15 | XMS_ITS | Encounter Summary ---
Author Organization [facility] Address [address] [place] [address] Care Team Providers Care Senior Computer Specialist Name Role Phone Unavailable Primary Care Provider Unavailabl e Reason for Referral * Specialty Diagnoses / Procedures Referred By Gutierrez story Referred To Contact Diagnoses Squamous Cell Carcinoma Of Skin Of Scalp And Neck Francesco Braswell M.D., M.S. [address] [place] [phone] Phone: tel: fax: [facility] Referral ID Status Reason Start Date Expiration Date Visits Re quested Visits Authorized Scheduling Instructions Pt an hour away hoping she can chat with someone today about Cemiplimab (potentially neoadjuvant prior to surgery). 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 Thank you :) Reason for Visit * Outpatient (Routine) - Closed Specialty Diagnoses / Procedures Referred By Gutierrez t Referred To Contact Dermatology Joseph Rivera M.D. [address] [place] [phone] Phone: tel: fax: [facility] Referral ID Status Reason Start Date Expiration Date Visits Re quested Visits Authorized [id number] Closed 03/19/2025 09/18/2026 1 1 Encounter Details Date Type Department Care Team (Latest Contact Info) Description 04/27/2025 9:15 AM CDT Comprehensive Visit Department of Dermatology in [place], [place] [address] [place] [phone] Francesco Braswell M.D., M.S. [address] [place] [phone] Squamous Cell Carcinoma Of Skin Of Scalp And Neck (Primary Dx) Discharge Disposition: Home or Self Care Social History Tobacco Use Types Packs/Day Years Used Date Smoking Tobacco: Never Assessed Comments Unknown Sex and Gender Information Value Date Recorded Sex Assigned at Not on file Legal Sex Female 8:35 AM CDT Gender Identity Not on file Sexual Orientation Not on file documented as of this encounter Consult Notes * Francesco Braswell M.D., M.S. - 04/27/2025 9:15 AM CDT REFERRING PROVIDER Joseph Rivera M.D. 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 Skin: Examination performed of the scalp per patient's request. Examination reveals Garcia type II skin. There is an exophytic tumor with a necrotic central area noted on the left central frontal scalp measuring approximately 7-8 cm in diameter. No other lesions of concern identified. 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 I have also discussed the possibility of neoadjuvant immunotherapy prior to surgery as a way of shrinking the tumor which may decrease morbidity at the time of removal. Finally I have discussed the possibility of radiation therapy as a primary treatment approach with out surgery as an option. After discussing these options Mrs. Cardenas and her daughters are most inclined to start with immunotherapy, see how that goes, and potentially consider surgery afterwards if they immunotherapy does not seem to be getting rid of the tumor in its entirety. I have placed an order for Mrs. Cardenas to discuss the possibility of immunotherapy as a potential neoadjuvant therapy with my colleagues in Medical Oncology, with the option of Mohs surgery combined with head neck surgery down the road. She was able to get an appointment scheduled for tomorrow. #2 Fair complected individual #3 Dermatoheliosis #4 Freeze risk for future skin cancer Mrs. Cardenas should sun protect daily and monitor her skin regularly. Full skin examinations in the Dermatology Department would be recommended on a regular basis. All questions addressed and answered today, and Mrs. Cardenas is welcome to call should any questions or concerns arise in the future. PATIENT EDUCATION Ready to learn. No apparent learning barriers were identified. Learning preferences include listening. Explained diagnosis and treatment plan; patient/guardian of patient expressed understanding of the content. documented in this encounter Plan of Treatment Scheduled Referrals Name Type Priority Associated Diagnoses Orde r Schedule Oncology - Head Neck education visit (clinic) Outpatient Referral Routine Squamous Cell Carcinoma Of Skin Of Scalp And Neck Expected: 04/27/2025, Expires: 07/28/2026 documented as of this encounter Visit Diagnoses Diagnosis Squamous Cell Carcinoma Of Skin Of Scalp And Neck- Primary documented in this encounter
[2025-05-12 15:09] LABS: Chloride* 108 mmol/L (96-114); Potassium* 4.2 mmol/L (3.6-5.1); Sodium* 138 mmol/L (135-149)
[2025-05-12 15:12] LABS: Blood Urea Nitrogen* 46 mg/dL (7-30); Creatinine* 1.5 mg/dL (0.5-1.5); Estimated Glomerular Filt Rate 35 ml/min
[2025-05-12 15:13] LABS: Anion Gap 8 mEq/L (7-15); Calcium* 9.1 mg/dL (8.4-10.6); Carbon Dioxide* 22 mmol/L (20-32); Glucose* 125 mg/dL (60-115)
--- OUTSIDE RECORDS SUMMARY | 2025-05-13 00:17 | XMS_ITS | Encounter Summary ---
Author Organization [facility] Address [address] [place] [address] Care Team Providers Care Service Order Expediter Name Role Phone Unavailable Primary Care Provider Unavailabl e Reason for Referral * Outpatient (Routine) - Closed Specialty Diagnoses / Procedures Referred By Gutierrez story Referred To Contact Dermatology Joseph Rivera M.D. [address] [place] [phone] Phone: tel: fax: [facility] Referral ID Status Reason Start Date Expiration Date Visits Re quested Visits Authorized [id number] Closed 03/19/2025 09/18/2026 1 1 Reason for Visit * Reason Onset Date Comments Referral Triage 03/06/2025 Encounter Details Date Type Department Care Team (Late st Contact Info) Description 03/06/2025 Referral Triage Department of Dermatology in [place], [place] [address] [place] [phone] Prescheduling, Provider Referral Triage Social History Tobacco Use Types Packs/Day Years Used Date Smoking Tobacco: Never Assessed Comments Unknown Sex and Gender Information Value Date Recorded Sex Assigned at Not on file Legal Sex Female 8:35 AM CDT Gender Identity Not on file Sexual Orientation Not on file documented as of this encounter Plan of Treatment Scheduled Referrals Name Type Priority Associated Diagnoses Order Schedule Dermatology office visit (clinic) Outpatient Referral Routine Expected: 03/19/2025, Expires: 06/19/2026 documented as of this encounter Visit Diagnoses Not on filedocumented in this encounter
--- OUTSIDE RECORDS SUMMARY | 2025-05-13 00:17 | XMS_ITS | Encounter Summary ---
Author Organization [facility] Address [address] [place] [address] Care Team Providers Care Manager Rail Name Role Phone Unavailable Primary Care Provider Unavailabl e Reason for Referral * MRI/CAT/PET Scan (Routine) - Authorized Specialty Diagnoses / Procedures Referred By Gutierrez story Referred To Contact Diagnoses Squamous Cell Carcinoma Of Skin Of Scalp And Neck Procedures PET CT Skull to Thigh FDG Francesco Braswell M.D., M.S. [address] [place] [phone] Phone: tel: fax: [facility] Referral ID Status Reason Start Date Expiration Date V isits Requested Visits Authorized [id number] Authorized 04/30/2025 07/31/2026 1 1 Encounter Details Date Type Department Care Team (Late st Contact Info) Description 04/30/2025 Orders Only Department of Dermatology in [place], [place] [address] [place] [phone] Francesco Braswell M.D., M.S. [address] [place] [phone] Squamous Cell Carcinoma Of Skin Of Scalp And Neck (Primary Dx) Social History Tobacco Use Types Packs/Day Years Used Date Smoking Tobacco: Never Assessed Comments Unknown Sex and Gender Information Value Date Recorded Sex Assigned at Not on file Legal Sex Female 8:35 AM CDT Gender Identity Not on file Sexual Orientation Not on file documented as of this encounter Plan of Treatment Scheduled Orders Name Type Priority Associated Diagnoses Order Schedule CBC with Differential, Blood Lab Routine Squamous Cell Carcinoma Of Skin Of Scalp And Neck Expected: 04/30/2025, Expires: 07/31/2026 Comprehensive Metabolic Panel Lab Routine Squamous Cell Carcinoma Of Skin Of Scalp And Neck Expected: 04/30/2025 (Approximate), Expires: 07/31/2026 Glucose, Fasting Lab Routine Squamous Cell Carcinoma Of Skin Of Scalp And Neck Expected: 04/30/2025 (Approximate), Expires: 07/31/2026 Thyroid Function [place] Lab Routine Squamous Cell Carcinoma Of Skin Of Scalp And Neck Expected: 04/30/2025, Expires: 07/31/[address] Skull to Thigh FDG Imaging RAD - Routine (most inpatients and all outpatients) Squamous Cell Carcinoma Of Skin Of Scalp And Neck Expected: 04/30/2025, Expires: 07/31/2026 documented as of this encounter Visit Diagnoses Diagnosis Squamous Cell Carcinoma Of Skin Of Scalp And Neck- Primary documented in this encounter
--- OUTSIDE RECORDS SUMMARY | 2025-05-13 00:17 | XMS_ITS | Encounter Summary ---
Author Organization [facility] Address [address] [place] [address] Care Team Providers Care Business Process Coordinator Name Role Phone Unavailable Primary Care Provider Unavailabl e Reason for Referral * Outpatient (Routine) - Authorized Specialty Diagnoses / Procedures Referred By Gutierrez story Referred To Contact Medical Oncology / Oncology Diagnoses Squamous Cell Carcinoma Of Skin Of Scalp And Neck Francesco Braswell M.D., M.S. [address] [place] [phone] Phone: tel: fax: [facility] Region Referral ID Status Reason Start Date Expiration Date Visits Requested Visits Authorized [id number] Authorized Specialty Services Required 05/06/2025 11/05/2026 1 1 Scheduling Instructions [place] or [place] if possible. Thank you! * MRI/CAT/PET Scan (Routine) - Authorized Specialty Diagnoses / Procedures Referred By Gutierrez story Referred To Contact Diagnoses Squamous Cell Carcinoma Of Skin Of Scalp And Neck Procedures PET CT Whole Body FDG Francesco Braswell M.D., M.S. [address] [place] [phone] Phone: tel: fax: [facility] Region Referral ID Status Reason Start Date Expiration Date V isits Requested Visits Authorized [id number] Authorized 05/06/2025 08/06/2026 1 1 Encounter Details Date Type Department Care Team ([facility] st Contact Info) Description 05/06/2025 Orders Only Department of Dermatology in [place], [place] 200 [place] [phone] Francesco Braswell M.D., M.S. [address] [place] [phone] Squamous Cell Carcinoma Of Skin Of Scalp [...] Scheduled Orders Name Type Priority Associated Diagnoses Orde r Schedule PET CT Whole Body FDG Imaging RAD - Routine (most inpatients and all outpatients) Squamous Cell Carcinoma Of Skin Of Scalp And Neck Expected: 05/06/2025, Expires: 08/06/2026 Scheduled Referrals Name Type Priority Associated Diagnoses Orde r Schedule Oncology - Medical, general consult (clinic) Outpatient Referral Routine Squamous Cell Carcinoma Of Skin Of Scalp And Neck Expected: 05/06/2025, Expires: 08/06/2026 documented as of this encounter Visit Diagnoses Diagnosis Squamous Cell Carcinoma Of Skin Of Scalp And Neck- Primary documented in this encounter
--- OUTSIDE RECORDS SUMMARY | 2025-05-13 00:17 | XMS_ITS | Clinical Summary ---
Author Organization [facility] Address [address] [place] [address] Care Team Providers Care Nurse Auditor Name Role Phone Unavailable Primary Care Provider Unavailabl e Source Comments Patient records contain information from all sites at [facility]. For routine questions regarding patient records, call [phone] during business hours, M-F 8:00 AM - 5:00 PM Central Time. Record requests for emergency care only can be directed to [phone] at any time.[facility] Encounters Date Type Department Care Team Description 05/06/2025 Orders Only Department of Dermatology in [place], [place] [address] [place] [phone] Francesco Braswell M.D., M.S. Squamous Cell Carcinoma Of Skin Of Scalp And Neck (Primary Dx) 04/30/2025 Orders Only Department of Dermatology in [place], [place] [address] [place] [phone] Francesco Braswell M.D., M.S. Squamous Cell Carcinoma Of Skin Of Scalp And Neck (Primary Dx) 04/27/2025 9:15 AM CDT Comprehensive Visit Department of Dermatology in [place], [place] [address] [place] [phone] Francesco Braswell M.D., M.S. Squamous Cell Carcinoma Of Skin Of Scalp And Neck (Primary Dx) Discharge Disposition: Home or Self Care 04/27/2025 Clinical Communication Department of Dermatology in [place], [place] [address] [place] [phone] Francesco Braswell M.D., M.S. 03/06/2025 Referral Triage Department of Dermatology in [place], [place] [address] [place] [phone] Prescheduling, Provider Referral Triage 03/05/2025 Ancillary Procedure Department of Dermatology from Last 3 Months Social History Tobacco Use Types Packs/Day Years Used Date Smoking Tobacco: Never Assessed Comments Unknown Sex and Gender Information Value Date Recorded Sex Assigned at Not on file Legal Sex Female 8:35 AM CDT Gender Identity Not on file Sexual Orientation Not on file Plan of Treatment Health Maintenance Due Date Last Done Comments DTaP,Tdap,and Td Vaccines (1 - Tdap) 1961 Pneumococcal vaccine (50+ ye ars) (1 of 1 - PCV) 1992 Zoster Vaccines (1 of 2) 1992 RSV vaccine - (32-3 6 weeks) or 60+ years (1 - 1-dose 75+ series) 2017 Depression Screening (Annual PHQ-2) 09/10/2024 Fall Risk Screen (Annual) 09/10/2024 COVID-19 Vaccine (1 - 2023-2 5 season) 2025 Influenza Vaccine (#1) 2025 09/12/2024 IPV Vaccines Aged Out No longer eligi ble based on patient's age to complete this topic Procedures Procedure Name Priority Date/Time Associated Diagnosis Comments DERMATOLOGY IMAGE EXAM Routine 03/05/2025 12:00 AM CDT from Last 3 Months Results * Scalp 502-Dermatology Image Exam (03/05/2025 12:00 AM CDT) Narrative IIMS - 03/05/2025 3:31 PM CDT This order has been created and auto-finalized to support the import of images acquired without order. The clinical documentation to support these images can be found on the encounter that produced images. us Provider Not In System IMG NON RAD IMAGING PROCE VINCE Final Result [facility]IMS NA from Last 3 Months Insurance MEDICARE
--- OUTSIDE RECORDS SUMMARY | 2025-05-13 00:17 | XMS_ITS | Encounter Summary ---
Author Organization [facility] Address [address] [place] [address] Care Team Providers Care Recoater Name Role Phone Unavailable Primary Care Provider Unavailabl e Reason for Referral * Outpatient (Routine) - Authorized Specialty Diagnoses / Procedures Referred By Gutierrez story Referred To Contact Medical Oncology / Oncology Diagnoses Squamous Cell Carcinoma Of Skin Of Scalp And Neck Francesco Braswell M.D., M.S. [address] [place] [phone] Phone: tel: fax: [facility] Referral ID Status Reason Start Date Expiration Date V isits Requested Visits Authorized [id number] Authorized 04/30/2025 10/30/2026 1 1 Encounter Details Date Type Department Care Team (Late st Contact Info) Description 04/27/2025 Clinical Communication Department of Dermatology in [place], [place] [address] [place] [phone] Francesco Braswell M.D., M.S. [address] [place] [phone] Social History Tobacco Use Types Packs/Day Years [...] Diagnoses Orde r Schedule Oncology - Medical, skin cancer (melanoma and non-melanoma skin cancer, excluding cutaneous lymphoma) consult (clinic) Outpatient Referral Routine Squamous Cell Carcinoma Of Skin Of Scalp And Neck Expected: 04/30/2025, Expires: 07/31/2026 documented as of this encounter Visit Diagnoses Diagnosis Squamous Cell Carcinoma Of Skin Of Scalp And Neck- Primary documented in this encounter
== END 2025-05-12 13:31 | disposition home or self-care (01) ==
LOC: NPINS 13:30
PROVIDERS: PCP Family Medicine; Visit Provider Nurse Practitioner Gerontology
DX: R60.9 Edema, unspecified (principal)
CPT/HCPCS: 80048

== ENCOUNTER 2025-05-21 13:07 | Outpatient (CLI) | payer BC, SELFPAY ==
--- NOTE | 2025-05-21 17:00 | CRLHL7_ITS ---
For Patients: As a result of the Century Cures Act, medical imaging exams and procedure reports are released immediately into your electronic medical record. You may view this report before your referring provider. If you have questions, please contact your health care provider. CLINICAL HISTORY: Squamous cell carcinoma of the scalp. TECHNIQUE: Following IV injection of 50-vygqrh-8-deoxyglucose (FDG) and a standard uptake period of approximately 60 minutes, a non-contrast CT scan followed by a PET scan were acquired along the length of the body from the top of the head to the feet. The non-contrast CT was used for anatomic localization and photon attenuation correction of the PET scan. Blood Glucose Level (mg/dL): 99 FDG Dose (mCi): 12.7 FINDINGS: Head/Neck: 4.3 x 1.4 cm left frontal scalp mass, SUV max 20.3. No other abnormal activity identified in the head and neck. Chest: No mediastinal or hilar adenopathy. No axillary adenopathy. Atherosclerotic vascular calcifications. The lungs show no focal pulmonary opacities. No pneumothorax. Abdomen/Pelvis: No focal abnormalities identified in the visualized portions of the liver, spleen, pancreas, and adrenal glands. A few small bilateral renal cysts. The kidneys are otherwise unremarkable. No hydronephrosis. Colonic diverticulosis. The remainder of the GI tract is incompletely distended but shows no gross abnormalities. Probable pessary in the vagina. No retroperitoneal, pelvic sidewall, or mesenteric adenopathy. Atherosclerotic vascular calcifications. Gallstone in the gallbladder. Bones: No abnormal skeletal activity identified. IMPRESSION: 1. Left frontal scalp mass shows increased activity representing the patient`s squamous cell carcinoma. 2. No metastatic disease identified. Dictated by Bi Albright MD @ 05/24/2025 4:47:00 PM (Electronically Signed)
== END 2025-05-21 13:08 | disposition home or self-care (01) ==
PROVIDERS: PCP Family Medicine; Visit Provider Dermatology
DX: C44.42 Squamous cell carcinoma of skin of scalp and neck (principal)
CPT/HCPCS: 78816; A9552

== ENCOUNTER 2025-06-17 14:43 | Outpatient (REF) | payer BC, SELFPAY ==
[2025-06-17 15:19] LABS: Albumin* 3.9 g/dL (3.3-5.0); Chloride* 104 mmol/L (96-114); Potassium* 4.3 mmol/L (3.6-5.1); Sodium* 140 mmol/L (135-149)
[2025-06-17 15:22] LABS: Alanine Aminotransferase* 53 U/L (4-35); Alkaline Phosphatase* 108 U/L (40-150); Anion Gap 12 mEq/L (7-15); Aspartate Amino Transferase* 51 U/L (12-35); Bilirubin Direct* 0.3 mg/dL (0.0-0.5); Bilirubin Total* 0.6 mg/dL (0.1-1.5); Blood Urea Nitrogen* 46 mg/dL (7-30); Carbon Dioxide* 24 mmol/L (20-32); Creatinine* 2.0 mg/dL (0.5-1.5); Estimated Glomerular Filt Rate 24 ml/min; Total Protein* 7.1 g/dL (6.0-8.3)
[2025-06-17 15:23] LABS: Calcium* 9.6 mg/dL (8.4-10.6); Glucose* 151 mg/dL (60-115)
[2025-06-17 15:43] LABS: NT Pro B Type NatriureticPept* 1520 pg/mL (See Note)
== END 2025-06-17 14:44 | disposition home or self-care (01) ==
LOC: NPINS 14:43
PROVIDERS: PCP Family Medicine; Visit Provider Family Medicine
DX: N17.9 Acute kidney failure, unspecified (principal); C44.92 Squamous cell carcinoma of skin, unspecified
CPT/HCPCS: 80048; 80076; 83880

== ENCOUNTER 2025-06-22 13:45 | Outpatient (REF) | payer BC, SELFPAY ==
[2025-06-22 14:07] LABS: Hematocrit* 33.7 % (33.0-51.0); Hemoglobin* 10.5 gm/dL (12.0-16.0); Immature Granulocytes Abs Auto 0.01 K/uL (0.00-0.30); Immature Granulocytes Pct Auto 0.2 %; Lymphocytes Absolute Auto 1.54 K/uL (0.90-2.90); Mean Corpuscular HGB Conc 31 gm/dL (32-36); Mean Corpuscular Hemoglobin 29 pg (26-34); Mean Corpuscular Volume 92 fL (80-100); RDW Coefficient of Variation % 16.0 % (11.5-15.5); Red Blood Count* 3.67 m/uL (4.00-5.20); White Blood Count* 6.58 K/uL (4.50-11.00)
[2025-06-22 14:23] LABS: Slide Review Reflex No
[2025-06-22 15:16] LABS: Albumin* 3.7 g/dL (3.3-5.0); Chloride* 105 mmol/L (96-114)
[2025-06-22 15:17] LABS: Potassium* 4.0 mmol/L (3.6-5.1); Sodium* 135 mmol/L (135-149)
[2025-06-22 15:19] LABS: Alanine Aminotransferase* 52 U/L (4-35); Alkaline Phosphatase* 118 U/L (40-150); Anion Gap 10 mEq/L (7-15); Aspartate Amino Transferase* 62 U/L (12-35); Bilirubin Total* 0.5 mg/dL (0.1-1.5); Blood Urea Nitrogen* 39 mg/dL (7-30); Carbon Dioxide* 20 mmol/L (20-32); Creatinine* 1.7 mg/dL (0.5-1.5); Estimated Glomerular Filt Rate 30 ml/min; Total Protein* 6.6 g/dL (6.0-8.3)
[2025-06-22 15:20] LABS: Calcium* 9.0 mg/dL (8.4-10.6); Glucose* 187 mg/dL (60-115)
--- OUTSIDE RECORDS SUMMARY | 2025-06-23 00:16 | XMS_ITS | Clinical Summary ---
Author Organization [facility] Address [address] [place] [address] Care Team Providers Care Forming Machine Upkeep Mechanic Helper Name Role Phone Unavailable Primary Care Provider Unavailabl e Source Comments Patient records contain information from all sites at [facility]. For routine questions regarding patient records, call [phone] during business hours, M-F 8:00 AM - 5:00 PM Central Time. Record requests for emergency care only can be directed to [phone] at any time.[facility] Encounters Date Type Department Care Team Description 05/06/2025 Orders Only Department of Dermatology in [place], [place] [address] [place] [phone] Francesco Braswell M.D., M.S. Squamous Cell Carcinoma Of Skin Of Scalp And Neck (Primary Dx) 04/30/2025 Orders Only Department of Dermatology in [place], [place] [address] [place] [phone] Francesco Braswell M.D., M.S. Squamous Cell Carcinoma Of Skin Of Scalp And Neck (Primary Dx) 04/27/2025 9:15 AM CDT Comprehensive Visit Department of Dermatology in [place], [place] [address] [place] [phone] Francesco Braswell M.D., M.S. Squamous Cell Carcinoma Of Skin Of Scalp And Neck (Primary Dx) Discharge Disposition: Home or Self Care 04/27/2025 Clinical Communication Department of Dermatology in [place], [place] [address] [place] [phone] Francesco Braswell M.D., M.S. from Last 3 Months Social History Tobacco [...] Pneumococcal vaccine (50+ ye ars) (1 of 2 - PCV) 1961 Zoster Vaccines (1 of 2) 1992 RSV vaccine - (32-3 6 weeks) or 50+ years (1 - 1-dose 75+ series) 2017 Depression Screening (Annual PHQ-2) 09/10/2024 Fall Risk Screen (Annual) 09/10/2024 COVID-19 Vaccine ( - 2024-2 6 season) 2025 Influenza Vaccine (#1) 2025 09/12/2024 IPV Vaccines Aged Out No longer eligi ble based on patient's age to complete this topic Procedures Procedure Name Priority Date/Time Associated Diagnosis Comments OUTSIDE NM PET Routine 05/21/2025 2:45 PM CDT from Last 3 Months Results * PET WHOLE BODY-Outside NM Pet (05/21/2025 2:45 PM CDT) 05/21/2025 2:43 PM CDT Narrative IIMS - 05/21/2025 5:38 PM CDT This order has been created and auto-finalized to support the import of outside images. If available, original interpretation can be found on the Media Tab in Chart Review, in Document Viewer, as an image in InfinityView or as an Addendum. If a re-interpretation or overread is required please follow defined workflow. us Provider Not In System IMG NM PROCEDURES Final R esult IIMS NA from Last 3 Months Insurance MEDICARE
== END 2025-06-22 13:46 | disposition home or self-care (01) ==
LOC: NPINS 13:45
PROVIDERS: PCP Family Medicine; Visit Provider Family Medicine
DX: C44.92 Squamous cell carcinoma of skin, unspecified (principal)
CPT/HCPCS: 80053; 84443; 85025

== ENCOUNTER 2025-07-14 13:48 | Outpatient (REF) | payer BC, SELFPAY ==
[2025-07-14 14:53] LABS: Hematocrit* 34.9 % (33.0-51.0); Hemoglobin* 10.6 gm/dL (12.0-16.0); Immature Granulocytes Abs Auto 0.03 K/uL (0.00-0.30); Immature Granulocytes Pct Auto 0.5 %; Lymphocytes Absolute Auto 1.47 K/uL (0.90-2.90); Mean Corpuscular HGB Conc 30 gm/dL (32-36); Mean Corpuscular Hemoglobin 28 pg (26-34); Mean Corpuscular Volume 93 fL (80-100); RDW Coefficient of Variation % 15.9 % (11.5-15.5); Red Blood Count* 3.77 m/uL (4.00-5.20); White Blood Count* 6.47 K/uL (4.50-11.00)
[2025-07-14 14:56] LABS: Slide Review Reflex No
[2025-07-14 15:15] LABS: Albumin* 3.5 g/dL (3.3-5.0); Chloride* 110 mmol/L (96-114); Sodium* 139 mmol/L (135-149)
[2025-07-14 15:16] LABS: Potassium* 4.6 mmol/L (3.6-5.1)
[2025-07-14 15:18] LABS: Alanine Aminotransferase* 48 U/L (4-35); Alkaline Phosphatase* 104 U/L (40-150); Anion Gap 8 mEq/L (7-15); Aspartate Amino Transferase* 44 U/L (12-35); Bilirubin Total* 0.7 mg/dL (0.1-1.5); Blood Urea Nitrogen* 40 mg/dL (7-30); Carbon Dioxide* 21 mmol/L (20-32); Creatinine* 1.7 mg/dL (0.5-1.5); Estimated Glomerular Filt Rate 30 ml/min; Total Protein* 6.7 g/dL (6.0-8.3)
[2025-07-14 15:19] LABS: Calcium* 9.0 mg/dL (8.4-10.6); Glucose* 124 mg/dL (60-115)
--- OUTSIDE RECORDS SUMMARY | 2025-07-15 00:28 | XMS_ITS | Clinical Summary ---
Author Organization [facility] Address [address] [place] [address] Care Team Providers Care Lead Generator Name Role Phone Unavailable Primary Care Provider Unavailabl e Source Comments Patient records contain information from all sites at [facility]. For routine questions regarding patient records, call [phone] during business hours, M-F 8:00 AM - 5:00 PM Central Time. Record requests for emergency care only can be directed to [phone] at any time.[facility] Encounters Date Type Department Care Team Description 05/06/2025 Orders Only Department of Dermatology in [place], [place] [address] [place] [phone] Francesco Braswell M.D., M.S. Squamous Cell Carcinoma Of Skin Of Scalp And Neck (Primary Dx) 04/30/2025 Orders Only Department of Dermatology in [place], [place] [address] [place] [phone] Francesco Braswell M.D., M.S. Squamous Cell Carcinoma Of Skin Of Scalp And Neck (Primary Dx) 04/27/2025 9:15 AM CDT Comprehensive Visit Department of Dermatology in [place], [place] [address] [place] [phone] Francesco Braswell M.D., M.S. Squamous Cell Carcinoma Of Skin Of Scalp And Neck (Primary Dx) Discharge Disposition: Home or Self Care 04/27/2025 Clinical Communication Department of Dermatology in [place], [place] [address] [place] [phone] Francesco Braswell M.D., M.S. from Last 3 [...]
== END 2025-07-14 13:49 | disposition home or self-care (01) ==
LOC: NPINS 13:48
PROVIDERS: PCP Family Medicine; Visit Provider Family Medicine
DX: C44.42 Squamous cell carcinoma of skin of scalp and neck (principal)
CPT/HCPCS: 80053; 84443; 85025

== ENCOUNTER 2025-07-17 12:38 | Emergency (ER) | payer BC, SELFPAY ==
--- OUTSIDE RECORDS SUMMARY | 2025-07-17 12:40 | XMS_ITS | Clinical Summary ---
Author Organization [facility] Address [address] [place] [id number] Care Team Providers Care Armhole Sewer Name Role Phone Unavailable Primary Care Provider Unavailabl e Source Comments Patient records contain information from all sites at [facility]. For routine questions regarding patient records, call [phone] during business hours, M-F 8:00 AM - 5:00 PM Central Time. Record requests for emergency care only can be directed to [phone] at any time.[facility] Encounters Date Type Department Care Team Description 05/06/2025 Orders Only Department of Dermatology in [place], [place] [address] [place] [phone] Francesco Braswell M.D., M.S. Squamous Cell Carcinoma Of Skin Of Scalp And Neck (Primary Dx) 04/30/2025 Orders Only Department of Dermatology in [place], [place] [address] [place] [phone] Francesco Braswell M.D., M.S. Squamous Cell Carcinoma Of Skin Of Scalp And Neck (Primary Dx) 04/27/2025 9:15 AM CDT Comprehensive Visit Department of Dermatology in [place], [place] [address] [place] [phone] Francesco Braswell M.D., M.S. Squamous Cell Carcinoma Of Skin Of Scalp And Neck (Primary Dx) Discharge Disposition: Home or Self Care 04/27/2025 Clinical Communication Department of Dermatology in [place], [place] [address] [place] [phone] Francesco Braswell M.D., M.S. from Last 3 [...]
[2025-07-17 13:54] VITALS: BP 129/72; PULSE 67; RESP 18; TEMP 36.2; O2SAT 93
--- NOTE | 2025-07-17 14:08 | CRLHL7_ITS ---
For Patients: As a result of the Century Cures Act, medical imaging exams and procedure reports are released immediately into your electronic medical record. You may view this report before your referring provider. If you have questions, please contact your health care provider. INDICATION: Leg pain and swelling. TECHNIQUE: Ultrasound venous duplex lower left extremity. Compression venous exam was performed using wood-scale, color Doppler, and spectral Doppler analysis. COMPARISON: None. FINDINGS: Deep veins: Sonographic imaging demonstrates the left common femoral, deep femoral, superficial femoral, popliteal, posterior tibial and the contralateral right common femoral veins to be fully compressible with normal color Doppler blood flow. Superficial veins: Greater saphenous vein is fully compressible. No popliteal cyst. IMPRESSION: No evidence of venous thrombosis in the examined veins. Dictated by Anna Weiss MD @ 07/17/2025 3:05:11 PM (Electronically Signed)
--- NOTE | 2025-07-17 15:11 | ED.GENADULT ---
HPI - General Adult General Chief complaint: Extremity Pain/Injury, Lower Stated complaint: knee pain/swelling Time Seen by Provider: 07/17/25 13:53 Source: patient Mode of arrival: wheelchair History of Present Illness HPI narrative: 85-year-old female with dementia presenting today with left knee pain. Question if there was a fall prior to the pain starting, unclear. She was seen yesterday at the [facility] in did have an x-ray done. I do have the report of that x-ray and it was unremarkable. Patient generally is able to ambulate with a walker, but now can only ambulate a few steps before she starts complaining of knee discomfort. Related Data Home Medications ?Medication ?Instructions ?Recorded ?Confirmed carvedilol 3.125 mg tablet 3.125 mg PO Q12H 10/01/24 07/17/25 loperamide 2 mg capsule 2 mg PO Q4H PRN 10/01/24 07/17/25 memantine 10 mg tablet 10 mg PO BID 10/01/24 07/17/25 primidone 50 mg tablet 50 mg PO DAILY 10/01/24 07/17/25 rosuvastatin 20 mg tablet 30 mg PO DAILY 10/01/24 07/17/25 acetaminophen 500 mg tablet 1,000 mg PO BID PRN 02/25/25 07/17/25 (Tylenol Extra Strength) bisacodyl 10 mg rectal suppository 10 mg ID QDAY PRN 02/25/25 07/17/25 (Dulcolax (bisacodyl)) diclofenac sodium 1 % topical gel 2 g topical QID 02/25/25 07/17/25 glipizide 5 mg tablet 2.5 mg PO QDAY 02/25/25 07/17/25 hydrocortisone-pramoxine 1 %-1 % 1 applic ID QID PRN 02/25/25 07/16/25 rectal cream magnesium hydroxide 400 mg/5 mL 30 ml PO QDAY PRN 02/25/25 07/17/25 oral suspension (Milk of Magnesia) mupirocin 2 % topical ointment 1 applic topical BID 02/25/25 07/17/25 sennosides 8.6 mg tablet (Senna 8.6 mg PO QDAY 02/25/25 07/17/25 Lax) aspirin 81 mg tablet,delayed 81 mg PO QDAY 05/26/25 07/17/25 release tramadol 50 mg tablet 50 mg PO Q6H PRN 05/26/25 07/17/25 torsemide 10 mg tablet 10 mg PO .COMPLEX 07/17/25 07/17/25 torsemide 20 mg tablet 20 mg PO .COMPLEX 07/17/25 07/17/25 Previous Rx's ?Medication ?Instructions ?Recorded ondansetron HCl 4 mg tablet 4 mg PO Q8H #60 tabs 05/26/25 prochlorperazine maleate 5 mg 5 mg PO BID PRN nausea and 05/26/25 tablet (Compazine) vomiting #60 tabs Allergies Allergy/AdvReac Type Severity Reaction Status Date / Time No Known Drug Allergies Allergy Verified 07/17/25 13:57 Review of Systems Status of ROS: Reports: 6 or more systems reviewed and unremarkable except as noted in History and below (Obtained from family) [facility] Medical History Mood disorder ?F39 - Unspecified mood [affective] disorder (ICD-10) Footdrop ?M21.379 - Foot drop, unspecified foot (ICD-10) Type 2 diabetes mellitus with peripheral angiopathy ?E11.51 - Type 2 diabetes mellitus with diabetic peripheral angiopathy without gangrene (ICD-10) Hyperlipidemia ?E78.5 - Hyperlipidemia, unspecified (ICD-10) Osteoarthritis ?M19.90 - Unspecified osteoarthritis, unspecified site (ICD-10) Constipation ?K59.00 - Constipation, unspecified (ICD-10) Dementia ?F03.90 - Unspecified dementia, unspecified severity, without behavioral disturbance, psychotic disturbance, mood disturbance, and anxiety (ICD-10) Atherosclerosis of abdominal aorta ?I70.0 - Atherosclerosis of aorta (ICD-10) Hypertrophic cardiomyopathy ?I42.2 - Other hypertrophic cardiomyopathy (ICD-10) Thrombocytopenia ?D69.6 - Thrombocytopenia, unspecified (ICD-10) COPD (chronic obstructive pulmonary disease) ?J44.9 - Chronic obstructive pulmonary disease, unspecified (ICD-10) Surgical History History of appendectomy ?Z90.49 - Acquired absence of other specified parts of digestive tract (ICD-10) H/O heart surgery ?Z98.890 - Other specified postprocedural states (ICD-10) Family History Other Diabetes Heart disease Social History Narrative: Originally from [place], was living in [place] but moved back to [place] late in 2023 upon the insistence of her daughters. Education: High school graduate Employment: Retired Former smoker. Quit 09/2024 Alcohol: No Illicit/recreational drug use: No Smoking Status: Never smoker Do you use any of these nicotine containing products: None Second hand tobacco smoke exposure: No How often do you have a drink containing alcohol: never How often do you have six or more drinks on one occasion: Never AUDIT-C Alcohol total score: 0 Non-prescribed substance use: denies use Exam Narrative: Exam Narrative: Well-nourished well-developed patient in no acute distress. Answers some questions appropriately, but not all. HEENT: Normocephalic atraumatic. Extraocular muscles are intact. Conjunctivae are moist without any icterus noted. Moist mucous membranes. Extremities: Patient does have some mild soft tissue swelling of the left knee. She has full range of motion with flexion and extension without significant discomfort. Patient points to the medial lower leg just distal to the knee as the area that is tender. She complains of pain when that area is touched. It is not hot to touch, is not erythematous. She has no pain of the posterior knee. No pain with compression of the patella. She has some pain over the medial joint line sometimes but then the next time the area is touched it is does not seem uncomfortable. There is no pain of the calf or lower leg. No pain of thigh. Const: Vital Signs, click to edit/add: Vital Signs - 24 hr 07/17/25 13:54 Temperature 97.2 F L Pulse Rate [Pulse Oximeter] 67 Respiratory Rate 18 Blood Pressure [Ri ght Upper Arm] 129/72 Pulse Oximetry 93 Oxygen Delivery Me thod Room Air Course Course ED Course: Did do an ultrasound of the leg given her unspecified discomfort, this was negative for any evidence of DVT. Again, I am able to review her x-ray which was unremarkable for any acute findings, does show mild to moderate degenerative changes. Discussed pain management with the family: Patient has Tylenol, tramadol in ER on the Voltaren gel written for. Family is unclear if she can take the tramadol for knee pain given that is written for scalp pain secondary to her skin cancer. There also unsure whether not she has any left. Therefore prescription for tramadol 50 mg p.o. q.6 hours p.r.n. was written today for 20 tablets. Paper prescription was given to the patient's daughters. Patient placed in a knee brace. Vital Signs Vital signs: Initial Vital Signs Temperature 97.2 F L 07/17/25 13:54 Temperature Source Temporal Artery Scan 07/17/25 13:54 Pulse Rate 67 07/17/25 13:54 Respiratory Rate 18 07/17/25 13:54 Blood Pressure 129/72 07/17/25 13:54 Blood Pressure Mean 91 07/17/25 13:54 Blood Pressure Position Semi-Fowlers 07/17/25 13:54 Pulse Oximetry 93 07/17/25 13:54 Oxygen Delivery Method Room Air 07/17/25 13:54 Vital Signs Temperature 97.2 F L 07/17/25 13:54 Pulse Rate 67 07/17/25 13:54 Respiratory Rate 18 07/17/25 13:54 Blood Pressure 129/72 07/17/25 13:54 Pulse Oximetry 93 07/17/25 13:54 Oxygen Delivery Method Room Air 07/17/25 13:54 Temperature 97.2 F L 07/17/25 13:54 Pulse Rate 67 07/17/25 13:54 Respiratory Rate 18 07/17/25 13:54 Blood Pressure 129/72 07/17/25 13:54 Pulse Oximetry 93 07/17/25 13:54 Oxygen Delivery Method Room Air 07/17/25 13:[address] [facility] Narrative Medical decision making narrative: 85-year-old female with knee pain, unclear etiology. We discussed following up with orthopedics next week for potential further imaging if the pain continues. Imaging Data Venous US: Attestation: I have reviewed the pertinent imaging results. Radiologist's impression: TECHNIQUE: Ultrasound venous duplex lower left extremity. Compression venous exam was performed using wood-scale, color Doppler, and spectral Doppler analysis. COMPARISON: None. FINDINGS: Deep veins: Sonographic imaging demonstrates the left common femoral, deep femoral, superficial femoral, popliteal, posterior tibial and the contralateral right common femoral veins to be fully compressible with normal color Doppler blood flow. Superficial veins: Greater saphenous vein is fully compressible. No popliteal cyst. IMPRESSION: No evidence of venous thrombosis in the examined veins. Discharge Plan Discharge Clinical Impression: Knee pain Patient Disposition: Home w/ Parent or Adult Condition: Stable Additional Instructions: Use pain medications as needed/as prescribed. Recommend using knee brace for support. If pain continues next week, follow-up with orthopedics in the outpatient clinic. Prescriptions: No Action carvedilol 3.125 mg tablet 3.125 mg PO Q12H memantine 10 mg tablet 10 mg PO BID primidone 50 mg tablet 50 mg PO DAILY rosuvastatin 20 mg tablet 30 mg PO DAILY Patient Comments: [NO ORIGINAL SIG] loperamide 2 mg capsule 2 mg PO Q4H PRN acetaminophen [Tylenol Extra Strength] 500 mg tablet 1,000 mg PO BID PRN hydrocortisone-pramoxine 1-1 % cream 1 applic ID QID PRN sennosides [Senna Lax] 8.6 mg tablet 8.6 mg PO QDAY magnesium hydroxide [Milk of Magnesia] 400 mg/5 mL suspension 30 ml PO QDAY PRN Rx Instructions: 30cc 1200mg/15ml bisacodyl [Dulcolax (bisacodyl)] 10 mg suppository 10 mg ID QDAY PRN mupirocin 2 % ointment 1 applic topical BID glipizide 5 mg tablet 2.5 mg PO QDAY diclofenac sodium 1 % gel 2 g topical QID Rx Instructions: apply to single elbow, wrist or hand; for hand includes palm/fingers/back of hand aspirin 81 mg tablet,delayed release (DR/EC) 81 mg PO QDAY tramadol 50 mg tablet 50 mg PO Q6H PRN prochlorperazine maleate [Compazine] 5 mg tablet 5 mg PO BID PRN (Reason: nausea and vomiting) Qty: 60 0RF ondansetron HCl 4 mg tablet 4 mg PO Q8H Qty: 60 0RF torsemide 20 mg tablet 20 mg PO .COMPLEX Rx Instructions: 20 mg orally once daily on Mon/Wed/Fri; torsemide 10 mg tablet 10 mg PO .COMPLEX Rx Instructions: 10 mg orally Once daily on Sun//Sun/Sun; Follow Up/Referrals: Hubert Sherwood MD [Primary Care Provider, Family Practice] Stand Alone Forms: MyHealth Info Instructions
[2025-07-17 15:56] VITALS: BP 138/81; PULSE 88; RESP 18; O2SAT 93
== END 2025-07-17 15:59 | disposition home or self-care (01) ==
PROVIDERS: Emergency Provider Family Medicine; PCP Family Medicine
DX: M25.562 Pain in left knee (principal)
CPT/HCPCS: 93971; 99283; 99284

== ENCOUNTER 2025-08-04 12:15 | Outpatient (REF) | payer BC, SELFPAY ==
[2025-08-04 13:43] LABS: Hematocrit* 35.0 % (33.0-51.0); Hemoglobin* 10.3 gm/dL (12.0-16.0); Immature Granulocytes Abs Auto 0.01 K/uL (0.00-0.30); Immature Granulocytes Pct Auto 0.1 %; Mean Corpuscular HGB Conc 29 gm/dL (32-36); Mean Corpuscular Hemoglobin 28 pg (26-34); Mean Corpuscular Volume 95 fL (80-100); RDW Coefficient of Variation % 15.9 % (11.5-15.5); Red Blood Count* 3.69 m/uL (4.00-5.20); White Blood Count* 6.84 K/uL (4.50-11.00)
[2025-08-04 13:48] LABS: Lymphocytes Absolute Auto 1.20 K/uL (0.90-2.90); Slide Review Reflex No
[2025-08-04 14:28] LABS: Albumin* 3.7 g/dL (3.3-5.0); Chloride* 103 mmol/L (96-114); Potassium* 5.7 mmol/L (3.6-5.1); Sodium* 136 mmol/L (135-149)
[2025-08-04 14:31] LABS: Alanine Aminotransferase* 63 U/L (4-35); Alkaline Phosphatase* 90 U/L (40-150); Anion Gap 13 mEq/L (7-15); Aspartate Amino Transferase* 63 U/L (12-35); Bilirubin Total* 0.9 mg/dL (0.1-1.5); Blood Urea Nitrogen* 36 mg/dL (7-30); Carbon Dioxide* 20 mmol/L (20-32); Creatinine* 1.5 mg/dL (0.5-1.5); Estimated Glomerular Filt Rate 34 ml/min; Total Protein* 7.0 g/dL (6.0-8.3)
[2025-08-04 14:32] LABS: Calcium* 8.6 mg/dL (8.4-10.6); Glucose* 201 mg/dL (60-115)
--- OUTSIDE RECORDS SUMMARY | 2025-08-05 00:40 | XMS_ITS | Clinical Summary ---
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 For routine questions regarding patient records, call [phone] during business hours, M-F 8:00 AM - 5:00 PM Central Time. Record requests for emergency care only can be directed to [phone] at any time.[facility] Encounters Date Type Department Care Team Description 05/06/2025 Orders Only Department of Dermatology in [place], [place] [address] [place] [address] Francesco Braswell M.D., M.S. Squamous Cell Carcinoma Of Skin Of Scalp And Neck (Primary Dx) from Last 3 Months Social History Tobacco [...] Screen (Annual) 09/10/2024 COVID-19 Vaccine (1 - 2024-2 6 season) 2025 Influenza Vaccine [...] System IMG NM PROCEDURES Final R esult IITX NA from Last 3 Months Insurance MEDICARE
== END 2025-08-04 12:16 | disposition home or self-care (01) ==
LOC: NPINS 12:15
PROVIDERS: PCP Family Medicine; Visit Provider Internal Medicine Hematology & Oncology
DX: C44.92 Squamous cell carcinoma of skin, unspecified (principal)
CPT/HCPCS: 80053; 84443; 85025

== ENCOUNTER 2025-08-18 13:03 | Outpatient (CLI) | payer BC, SELFPAY | END 2025-08-18 13:04 | disposition home or self-care (01) | LOC: AMB 08-19 18:12 | PROVIDERS: PCP Family Medicine; Visit Provider Student in an Organized Health Care Education/Training Program | DX: S72.90XA Unspecified fracture of unspecified femur, initial encounter for closed fracture (principal) | CPT/HCPCS: A0425; A0427 ==

== ENCOUNTER 2025-08-18 13:23 | Emergency (ER) | payer BC, SELFPAY ==
[2025-08-18] VITALS (30 sets, daily range): BP systolic 112–175; BP diastolic 48–68; PULSE 64–74; RESP 13–19; TEMP 36.3–36.7; O2SAT 85–96; BMI 52.5
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
--- NOTE | 2025-08-18 13:47 | CRLHL7_ITS ---
For Patients: As a result of the Century Cures Act, medical imaging exams and procedure reports are released immediately into your electronic medical record. You may view this report before your referring provider. If you have questions, please contact your health care provider. Indication: Trauma. Technique: Right femur, 4 views. Comparison: None. Findings/Impression: Bones: Decreased osseous mineralization. Acute displaced comminuted fracture of the distal femur. Joint spaces: Associated large joint effusion. Soft tissues: Associated soft tissue swelling. Vascular calcifications. Dictated by Roverto Fu MD @ 08/18/2025 2:45:19 PM (Electronically Signed)
--- NOTE | 2025-08-18 13:56 | CRLHL7_ITS ---
For Patients: As a result of the Cures Act, medical imaging exams and procedure reports are released immediately into your electronic medical record. You may view this report before your referring provider. If you have questions, please contact your health care provider. INDICATION: Fall. TECHNIQUE: Chest 1 views. COMPARISON: None. FINDINGS: Cardiovascular and mediastinum: Heart size and vasculature are normal in caliber and appearance. Lungs and pleural spaces: Low lung volumes. No sign of infiltrate or mass. No sign of pleural effusion. No pneumothorax. Bones and soft tissues: No significant findings. IMPRESSION: No acute or significant findings. Dictated by Roverto Fu MD @ 08/18/2025 2:44:03 PM (Electronically Signed)
[2025-08-18] MEDS: ONDANSETRON 2 MG/ML inj 4 MG IVP (14:05)
[2025-08-18 14:26] LABS: Hematocrit* 26.6 % (33.0-51.0); Hemoglobin* 8.0 gm/dL (12.0-16.0); Immature Granulocytes Abs Auto 0.02 K/uL (0.00-0.30); Immature Granulocytes Pct Auto 0.3 %; Lymphocytes Absolute Auto 1.20 K/uL (0.90-2.90); Mean Corpuscular HGB Conc 30 gm/dL (32-36); Mean Corpuscular Hemoglobin 28 pg (26-34); Mean Corpuscular Volume 94 fL (80-100); RDW Coefficient of Variation % 16.1 % (11.5-15.5); Red Blood Count* 2.84 m/uL (4.00-5.20); White Blood Count* 6.99 K/uL (4.50-11.00)
[2025-08-18 14:30] LABS: Slide Review Reflex No
[2025-08-18 14:31] LABS: Chloride* 100 mmol/L (96-114); Potassium* 4.4 mmol/L (3.6-5.1); Sodium* 135 mmol/L (135-149)
[2025-08-18 14:34] LABS: Anion Gap 11 mEq/L (7-15); Blood Urea Nitrogen* 43 mg/dL (7-30); Calcium* 8.3 mg/dL (8.4-10.6); Carbon Dioxide* 24 mmol/L (20-32); Creatinine* 1.5 mg/dL (0.5-1.5); Est. Creatinine Clearance* 26.60; Estimated Glomerular Filt Rate 34 ml/min; Glucose* 252 mg/dL (60-115)
== END 2025-08-18 19:11 | disposition other institution (70) ==
PROVIDERS: Emergency Provider Emergency Medicine; PCP Family Medicine
DX: S72.491A Other fracture of lower end of right femur, initial encounter for closed fracture (principal); S50.12XA Contusion of left forearm, initial encounter; W01.0XXA Fall on same level from slipping, tripping and stumbling without subsequent striking against object, initial encounter; Y93.E8 Activity, other personal hygiene; Y92.192 Bathroom in other specified residential institution as the place of occurrence of the external cause
CPT/HCPCS: 36415; 71045; 73552; 80048; 84484; 85025; 96374; 96375; 99284; 99285; J1171; J2405

== ENCOUNTER 2025-08-18 18:55 | Outpatient (CLI) | payer BC, SELFPAY | END 2025-08-18 18:56 | disposition home or self-care (01) | LOC: AMB 08-20 07:49 | PROVIDERS: PCP Family Medicine; Visit Provider Family Medicine | DX: S72.91XA Unspecified fracture of right femur, initial encounter for closed fracture (principal) | CPT/HCPCS: A0425; A0427 ==